=== PATIENT | male | born 1960 | race Caucasian/White ===

== ENCOUNTER 2016-07-14 20:00 | Inpatient (IN) | payer MEDICARE, OTHER ==
[~2016-07-14] VITALS: Ht 180.3 cm; Wt 99.8 kg
[~2016-07-14 20:00] MED LIST: ACET325T53 PO; AMLO5TAB4 PO; ATOR10TA PO; BISA-79 PO; CARV12.52 PO; CLON0.3T PO; DIVA500T4 PO; DOCU-25 PO; HYDR-4075 PO; HYDR100T27 PO; LABE100T25 PO; LISI40TA4 PO; LORA0.5T PO; MAGN400O4 PO; METF500T4 PO; NA P133E RC; NITR0.4T6 SL; OLAN5TAB3 PO; [UNRECOGNIZED DRUG - CODE] PO
[2016-07-14] MEDS ORDERED: LORAZEPAM 2 MG/1 ML VIAL IV ONE (20:30)
[2016-07-14] MEDS ORDERED: LORAZEPAM 2 MG/1 ML VIAL ONE (20:42)
[2016-07-14] MEDS ORDERED: VALS320T2 PO (20:49)
[2016-07-14] MEDS ORDERED: OXCA300T4 PO (20:49)
[2016-07-14] MEDS ORDERED: DOXA2TAB PO (20:49)
[2016-07-14] MEDS ORDERED: SPIR25TA PO (20:49)
[2016-07-14] MEDS ORDERED: POTA20TA83 PO (20:49)
[2016-07-14] MEDS ORDERED: OLANZAPINE 10 MG VIAL IM ONE ×2 (21:15→21:23)
[2016-07-14] MEDS ORDERED: LORAZEPAM 2 MG/1 ML VIAL IM ONE (21:15)
[2016-07-14 21:38] LABS: CALCIUM 9.1 mg/dL (8.5-10.1); CARBON DIOXIDE 22 mmol/L (21-32); CHLORIDE 102 mmol/L (98-107); CREATININE 1.2 mg/dL (0.6-1.3); GFR 63 mL/min (>60); GLUCOSE 120 mg/dL (74-106); POTASSIUM 3.9 mmol/L (3.5-5.1); SODIUM SERUM 138 mmol/L (136-145); UREA NITROGEN, BLOOD 16 mg/dL (7-18)
[2016-07-14 21:40] LABS: ETHANOL < 3 MG/DL (0-0)
[2016-07-14 21:53] LABS: ALANINE AMINOTRANSFERASE 15 U/L (16-63); ALBUMIN 3.5 g/dL (3.4-5.0); ALKALINE PHOSPHATASE 136 U/L (50-136); ASPARTATE AMINOTRANSFERASE 27 U/L (15-37); BILIRUBIN,DIRECT 0.1 mg/dL (0.0-0.2); BILIRUBIN,TOTAL 0.5 mg/dL (0.2-1.0); TOTAL PROTEIN, SERUM 7.2 g/dL (6.4-8.2)
[2016-07-14 21:54] LABS: THYROID STIMULATING HORMONE 2.034 mIU/mL (0.358-3.740)
[2016-07-14] MEDS ORDERED: LABETALOL HCL 100 MG/20 ML VIAL ONE (21:54)
[2016-07-14] MEDS ORDERED: LABETALOL HCL 100 MG/20 ML VIAL IV ONE ×2 (22:15→23:30)
[2016-07-14] MEDS ORDERED: CLONIDINE HCL 0.1 MG TABLET PO ONE (23:30)
[2016-07-14] MEDS ORDERED: CLONIDINE HCL 0.1 MG TABLET ONE (23:35)
[2016-07-14 23:40] LABS: BASOPHILS # (AUTO) 0.2 K/uL (0.0-0.2); BASOPHILS % (AUTO) 3.4 % (0.0-2.0); EOSINOPHILS # (AUTO) 0.2 K/uL (0.0-0.7); EOSINOPHILS % (AUTO) 4.1 % (0.0-7.0); HEMATOCRIT 45.6 % (40.0-50.0); HEMOGLOBIN 15.2 g/dL (14.0-18.0); LYMPHOCYTES # (AUTO) 1.3 K/uL (0.8-4.8); LYMPHOCYTES % (AUTO) 23.5 % (20.5-51.5); MEAN CORPUSCULAR HEMOGLOBIN 28.4 uug (27.0-31.0); MEAN CORPUSCULAR HGB CONC 33 g/dL (32.0-37.0); MEAN CORPUSCULAR VOLUME 85.1 fL (82.0-92.0); MONOCYTES # (AUTO) 0.6 K/uL (0.1-1.30); MONOCYTES % (AUTO) 10.8 % (0.0-11.0); NEUTROPHILS # (AUTO) 3.1 K/uL (1.8-8.9); NEUTROPHILS % (AUTO) 58.2 % (38.5-71.5); PLATELET COUNT (AUTO) 177 K/uL (150-450); RED BLOOD CELL COUNT(AUTO) 5.35 MIL/uL (4.70-6.10); RED CELL DISTRIBUTION WIDTH 13.5 % (11.5-14.5); WHITE BLOOD COUNT (AUTO) 5.4 K/uL (4.0-11.2)
[2016-07-14] MEDS ORDERED: ASPIRIN 325 MG TABLET ONE (23:55)
[2016-07-15] VITALS (7 sets, daily range): BP systolic 130–184; BP diastolic 78–120
[2016-07-15] MEDS ORDERED: ASPIRIN 325 MG TABLET PO ONE
[2016-07-15] MEDS ORDERED: NITROGLYCERIN OINT 1 GM PACKET TP ONE ×2 (00:04)
--- NOTE | 2016-07-15 00:49 | NUR ---
Patient transfered from [facility] on 5150 hold for grave disability. Patient noted with elevated BP. Pt. admitted to [facility] , under care of Dr. Parsons, Dx: NSTEMI, Grave disability. Belongs List completed
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
--- NOTE | 2016-07-15 03:30 | NUR ---
PATIENT HAS BEEN SLEEPING,BP 131/90, NSR RATE 64 BPM, NO ACUTE DISTRESS.
[2016-07-15] MEDS ORDERED: NITROGLYCERIN 0.4 MG/TAB BOTTLE SL PRN (04:15)
[2016-07-15] MEDS ORDERED: OLANZAPINE 5 MG TABLET PO SCH (04:15)
[2016-07-15] MEDS ORDERED: OXCARBAZEPINE 300 MG TABLET PO SCH (04:15)
[2016-07-15] MEDS ORDERED: LORAZEPAM 0.5 MG TABLET PO PRN (04:15)
[2016-07-15] MEDS ORDERED: ZOLPIDEM 5 MG TABLET PO PRN (04:30)
[2016-07-15] MEDS ORDERED: MAGNESIUM HYDROXIDE 30 ML LIQUID UDC PO PRN (04:30)
[2016-07-15] MEDS ORDERED: ACETAMINOPHEN 325 MG TABLET PO PRN (04:30)
[2016-07-15] MEDS ORDERED: Z GUARD REMEDY PASTE 57 GM TUBE TOP PRN (04:30)
[2016-07-15] MEDS ORDERED: ONDANSETRON 4 MG/2 ML VIAL IV PRN (04:30)
[2016-07-15] MEDS ORDERED: HYDROCODONE/APAP 5-325MG TABLET PO PRN (04:30)
--- NOTE | 2016-07-15 07:50 | NUR ---
PATIENT RECEIVED FROM FARM TRACTOR MECHANIC, NO ACUTE DISTRESS NOTED. PATIENT IN DEEP SLEEP DUE TO MEDICATION. SINUS RHYTHM ON TELE MONITOR. 1:1 SITTER AT BEDSIDE. SAFETY MEASURES MAINTAINED. WILL CONTINUE TO MONITOR.
[2016-07-15] MEDS: hydrALAZINE HCL 50 MG TABLET PO SCH ×5 (08:52→22:00)
[2016-07-15] MEDS: PANTOPRAZOLE SODIUM 40 MG TABLET.DR PO SCH (08:52)
[2016-07-15] MEDS: CARVEDILOL 25 MG TABLET PO SCH ×2 (08:53→17:57)
[2016-07-15] MEDS: DOCUSATE SODIUM 100 MG CAPSULE PO SCH (09:00)
[2016-07-15] MEDS ORDERED: Medication Not On Formulary EA (Valsartan (Diovan) 320 MG) PO SCH (09:00)
[2016-07-15] MEDS ORDERED: CARVEDILOL 12.5 MG TABLET PO SCH (09:00)
--- NOTE | 2016-07-15 09:30 | NUR ---
PATIENT AWAKE AND ORIENTED TO PERSON AND PLACE. EATING BREAKFAST WITH GOOD APPETITE.
[2016-07-15] MEDS: VALSARTAN 160 MG TABLET PO SCH (10:33)
[2016-07-15] MEDS: SPIRONOLACTONE 25 MG TABLET PO SCH (10:33)
[2016-07-15] MEDS: OXCARBAZEPINE 300 MG TABLET PO SCH ×2 (10:33→21:59)
[2016-07-15] MEDS: DOXAZOSIN 2 MG TABLET PO SCH ×2 (10:33→20:30)
[2016-07-15 12:00] LABS: CALCIUM 8.9 mg/dL (8.5-10.1); CREATININE 1.2 mg/dL (0.6-1.3); POTASSIUM 3.2 mmol/L (3.5-5.1)
[2016-07-15 12:03] LABS: MAGNESIUM 1.8 mg/dL (1.8-2.4)
--- NOTE | 2016-07-15 13:14 | NUR ---
EKG DONE PER JOANNE GRAHAM NP. DR. LANDEROS CORE CUTTER MADE AWARE OF FINDINGS, HE WILL ASSESS PATIENT.
[2016-07-15] MEDS ORDERED: POTASSIUM CHLORIDE 20 MEQ TAB.PRT.SR PO ONE (13:30)
[2016-07-15] MEDS: ASPIRIN 81 MG TAB.CHEW PO SCH ×2 (13:30→16:00)
--- NOTE | 2016-07-15 14:27 | NUR ---
PATIENT REFUSING BP, ASPIRIN, AND POTASSIUM MEDICATION AT THIS TIME. JOANNE GRAHAM NP MADE AWARE.
--- NOTE | 2016-07-15 16:11 | NUR ---
PATIENT AGREED TO TAKE MEDICATIONS.
--- NOTE | 2016-07-15 17:58 | NUR ---
PATIENT'S BP 176/116, PATIENT REFUSED TO TAKE COREG PRESCRIBED. STATED "NO, I DO NOT CARE IF I AM GOING TO , I AM GOING TO !!" SHOUTING AND AGITATED. UNABLE TO COMPREHEND AND REDIRECT AT THIS TIME. DENIED SI OR HI. JOANNE GRAHAM CREPE MACHINE OPERATOR NOTIFIED. CONTINUES WITH 1:1 SITTER AT BEDSIDE FOR SAFETY.
--- NOTE | 2016-07-15 18:10 | NUR ---
DR. SAVI BOGGS HERE TO SEE THE PATIENT. FULL REPORT GIVEN.
[2016-07-15] MEDS: ATORVASTATIN 10 MG TABLET PO SCH (20:30)
[2016-07-15] MEDS: OLANZAPINE ZYDIS 5 MG TAB.RAPDIS PO SCH ×2 (21:00→21:59)
--- NOTE | 2016-07-15 22:46 | NUR ---
Pt refusing his medication. took 2100 medication. spitted out 2200 medication. Pt was explained and educated is to why he is getting medication. He said that he is ok and getting too much medication and nothing is happening. pin drafting machine operator notified.
[2016-07-16] VITALS (8 sets, daily range): BP systolic 106–192; BP diastolic 60–126
--- NOTE | 2016-07-16 00:30 | NUR ---
BLOOD AL. STILL ELEVATED. PT CONTINUES TO REFUSE MEDICATION, GOT VERY ANGRY DOES NOT WANT TO BE BOTHERED. pT VERBALIZED UNDERSTANDING OF RISK OF NOT TAKING HIS BP MEDICATIONS. CHARGE NURSE MADE AWARE. MD AWARE THAT PT HAS BEEN REFUSING MEDS AND TREATMENT.
--- NOTE | 2016-07-16 02:32 | NUR ---
REMAINS ON 1:1 STATUS FOR PT SAFETY.
[2016-07-16] MEDS: hydrALAZINE HCL 50 MG TABLET PO SCH ×3 (05:12→20:32)
[2016-07-16] MEDS: PANTOPRAZOLE SODIUM 40 MG TABLET.DR PO SCH (05:12)
--- NOTE | 2016-07-16 06:44 | NUR ---
pt refused lab draw. medicated for HTN. see eMAR Had uneventful night.
[2016-07-16] MEDS: OXCARBAZEPINE 300 MG TABLET PO SCH ×2 (08:24→20:32)
[2016-07-16] MEDS: DOXAZOSIN 2 MG TABLET PO SCH ×2 (08:26→20:31)
[2016-07-16] MEDS: DOCUSATE SODIUM 100 MG CAPSULE PO SCH ×2 (08:27→08:37)
[2016-07-16] MEDS: VALSARTAN 160 MG TABLET PO SCH (08:27)
[2016-07-16] MEDS: OLANZAPINE ZYDIS 5 MG TAB.RAPDIS PO SCH ×2 (08:27→20:32)
[2016-07-16] MEDS: SPIRONOLACTONE 25 MG TABLET PO SCH (08:27)
[2016-07-16] MEDS: ASPIRIN 81 MG TAB.CHEW PO SCH (08:27)
[2016-07-16] MEDS: CARVEDILOL 25 MG TABLET PO SCH ×3 (08:28→17:19)
--- NOTE | 2016-07-16 08:37 | NUR ---
SBP in the high 180's ELEPHANT TAMER covering for MD notified and int he room when patient refuse to take a couple of medications see Emar sbp retaken and int he 191/121 HR 101. patient awake alert and stating "I have my rights to refuse medications" patient educated on HTN. and sbp been george.
[2016-07-16] MEDS ORDERED: CLONIDINE-TTS 1 PATCH TD SCH (10:00)
--- NOTE | 2016-07-16 14:27 | NUR ---
Patient seen by cardiology services and refused assessment.
[2016-07-16] MEDS: CLONIDINE HCL 0.3 MG TABLET PO PRN (16:15)
[2016-07-16] MEDS: ENALAPRILAT DIHYDRATE INJ 2.5 MG in IV NORMAL SALINE 50 ML IV PRN ×2 (17:07→17:20)
--- NOTE | 2016-07-16 17:21 | NUR ---
At this time attempts to administer both carbedilol po and vasotec IV for SBP of 187/126. Patient adamantly refuse. stating "I have the right to refuse and I don't care if I live or ". Patient persuaded and educated on side effects of been non-compliant with medications regimen. Dr. Mosqueda notified of refusal.
[2016-07-16] MEDS: ATORVASTATIN 10 MG TABLET PO SCH (20:31)
[2016-07-17 00:08] VITALS: BP 129/83
--- NOTE | 2016-07-17 05:18 | NUR ---
BP elevated 152/97. Patient refused to take his morning BP meds.
[2016-07-17] MEDS: hydrALAZINE HCL 50 MG TABLET PO SCH ×3 (05:19→21:43)
[2016-07-17] MEDS: PANTOPRAZOLE SODIUM 40 MG TABLET.DR PO SCH (05:20)
[2016-07-17 05:25] VITALS: BP 152/97
[2016-07-17 07:45] VITALS: BP 165/106
--- NOTE | 2016-07-17 08:00 | NUR ---
Pt received on 1:1 status with sitter at bedside.Pt appears comfortable.No s/s of pain,distress.All po medication was given to patient.will continue to monitor.
[2016-07-17] MEDS: ASPIRIN 81 MG TAB.CHEW PO SCH (09:04)
[2016-07-17] MEDS: VALSARTAN 160 MG TABLET PO SCH (09:05)
[2016-07-17] MEDS: DOXAZOSIN 2 MG TABLET PO SCH ×2 (09:05→20:28)
[2016-07-17] MEDS: DOCUSATE SODIUM 100 MG CAPSULE PO SCH (09:05)
[2016-07-17] MEDS: OLANZAPINE ZYDIS 5 MG TAB.RAPDIS PO SCH ×2 (09:05→20:29)
[2016-07-17] MEDS: SPIRONOLACTONE 25 MG TABLET PO SCH (09:05)
[2016-07-17] MEDS: OXCARBAZEPINE 300 MG TABLET PO SCH ×2 (09:05→20:29)
[2016-07-17] MEDS: CARVEDILOL 25 MG TABLET PO SCH ×2 (09:11→17:18)
[2016-07-17] MEDS: CLONIDINE HCL 0.3 MG TABLET PO PRN (14:43)
--- NOTE | 2016-07-17 15:00 | NUR ---
Patient BP 178/118, patient was given clonidine 0.3mg PO at 1443 with lots of prompting, will reassessed in 30 mins.
--- NOTE | 2016-07-17 15:30 | NUR ---
BP was rechecked after 30 mins. BP-140/98, P-60. Will continue to monitor .
[2016-07-17 17:00] VITALS: BP 140/95
[2016-07-17] MEDS ORDERED: CLONIDINE TTS 2 PATCH TD SCH (17:30)
[2016-07-17 20:00] VITALS: BP 163/105
--- NOTE | 2016-07-17 20:00 | NUR ---
PATIENT AWAKE IN BED. A/O X2. BLOOD PRESSURE IS 163/105. ALL OTHER VSS. DENIES PAIN OR DISCOMFORT. NO RESP. DISTRESS NOTED. 1:1 SITTER AT BEDSIDE. CALL LIGHT IN REACH. ALL NEEDS ATTENDED. WILL CONTINUE TO MONITOR.
[2016-07-17] MEDS: ATORVASTATIN 10 MG TABLET PO SCH (20:29)
--- NOTE | 2016-07-17 20:30 | NUR ---
PATIENT REFUSED HS MEDICATIONS. NOTIFIED DR. DYKES THAT PATIENT IS REFUSING TO TAKE BP MEDS AND THAT BP IS ELEVATED. NO NEW ORDERS AT THIS TIME. WILL CONTINUE TO MONITOR.
--- NOTE | 2016-07-17 21:44 | NUR ---
PATIENT ASLEEP IN BED. EASILY AROUSABLE. PATIENT INFORMED THAT BP MEDICATION IS DUE AND THAT BLOOD PRESSURE IS ELEVATED. PATIENT REFUSED TO TAKE ANY MEDS, STATED, "I AM OK." DR. DYKES AWARE THAT PATIENT IS REFUSING TO TAKE MEDS. WILL CONTINUE TO MONITOR. SITTER AT BEDSIDE.
[2016-07-18 05:22] VITALS: BP 172/113
[2016-07-18] MEDS: hydrALAZINE HCL 50 MG TABLET PO SCH ×3 (05:34→21:53)
--- NOTE | 2016-07-18 05:35 | NUR ---
PATIENT AWAKE IN BED. SITTER AT BEDSIDE. SLEPT WELL THROUGHOUT THE NIGHT. BP 172/113. PATIENT COMPLIANT WITH TAKING 0600 HYDRALAZINE 100MG PO. ALL OTHER VSS. DENIES PAIN OR DISCOMFORT. NO RESP. DISTRESS NOTED. CALL LIGHT IN REACH. ALL NEEDS ATTENDED. PATIENT SLEPT A TOTAL OF 6 HOURS.
[2016-07-18] MEDS: PANTOPRAZOLE SODIUM 40 MG TABLET.DR PO SCH (06:18)
[2016-07-18] MEDS: CARVEDILOL 25 MG TABLET PO SCH ×2 (08:20→17:29)
[2016-07-18] MEDS: SPIRONOLACTONE 25 MG TABLET PO SCH (08:20)
[2016-07-18] MEDS: DOXAZOSIN 2 MG TABLET PO SCH ×2 (08:20→20:10)
[2016-07-18] MEDS: VALSARTAN 160 MG TABLET PO SCH (08:21)
[2016-07-18] MEDS: DOCUSATE SODIUM 100 MG CAPSULE PO SCH (08:27)
[2016-07-18] MEDS: OLANZAPINE ZYDIS 5 MG TAB.RAPDIS PO SCH ×2 (08:27→20:16)
[2016-07-18] MEDS: ASPIRIN 81 MG TAB.CHEW PO SCH (08:27)
[2016-07-18] MEDS: OXCARBAZEPINE 300 MG TABLET PO SCH ×2 (08:27→20:16)
[2016-07-18 11:26] VITALS: BP 163/116
[2016-07-18] MEDS: CLONIDINE HCL 0.3 MG TABLET PO PRN ×2 (12:01→20:10)
[2016-07-18 14:47] VITALS: BP 171/121
--- NOTE | 2016-07-18 16:42 | NUR ---
The patient is medically cleared and [facility] under the care of Dr. Cosme. Spoke to Dr. Delcid who is covering for Dr. Cosme and he was in agreement. The patient was placed on a [address] Cosme on 07/17/16 for GD. The patient is aware that he in on a hold and knows that he will be transferred to MHU. GADIEL Stevens Development And Planning Engineer, is aware of the transfer and confirmed the efren Hummel RN, that they will admit the patient and he will be going to Room#145B. His RN, Sridevi, is aware of his discharge and will call the unit for the report.
[2016-07-18 20:00] VITALS: BP 181/141
[2016-07-18] MEDS: ATORVASTATIN 10 MG TABLET PO SCH (20:16)
[2016-07-19 04:00] VITALS: BP 159/102
[2016-07-19] MEDS: hydrALAZINE HCL 50 MG TABLET PO SCH ×3 (06:15→22:23)
[2016-07-19] MEDS: PANTOPRAZOLE SODIUM 40 MG TABLET.DR PO SCH (06:15)
--- NOTE | 2016-07-19 06:54 | NUR ---
PATIENT AWAKE, RESTING IN BED. SLEPT WELL THROUGHOUT THE NIGHT. DENIES PAIN. CALL LIGHT IN REACH. ALL NEEDS ATTENDED. WILL CONTINUE TO MONITOR.
[2016-07-19] MEDS: DOXAZOSIN 2 MG TABLET PO SCH ×2 (07:58→20:18)
[2016-07-19] MEDS: OXCARBAZEPINE 300 MG TABLET PO SCH ×2 (07:58→20:18)
[2016-07-19] MEDS: CARVEDILOL 25 MG TABLET PO SCH ×2 (08:00→17:39)
[2016-07-19] MEDS: VALSARTAN 160 MG TABLET PO SCH (08:01)
[2016-07-19 08:21] VITALS: BP 166/112
[2016-07-19] MEDS: DOCUSATE SODIUM 100 MG CAPSULE PO SCH (09:00)
[2016-07-19] MEDS: ASPIRIN 81 MG TAB.CHEW PO SCH (09:00)
[2016-07-19] MEDS: SPIRONOLACTONE 25 MG TABLET PO SCH (09:00)
[2016-07-19 12:02] VITALS: BP 157/107
[2016-07-19] MEDS: OLANZAPINE ZYDIS 5 MG TAB.RAPDIS PO SCH ×2 (13:17→20:18)
[2016-07-19 13:57] VITALS: BP 157/107
--- NOTE | 2016-07-19 14:15 | NUR ---
ATTEMPTED TO GIVE HYDRALAZINE PO FOR HIGH BP 157/107 P 77. PATIENT REFUSED, EDUCATION OF REFUSING AND S/S VERBALIZED TO PATIENT, PATIENT VERBALIZES UNDERSTANDING. CONTINUE TO EDUCATE AND ENCOURAGE PATIENT REGARDING IMPORTANCE OF MEDICATION REGIMEN. JOANNE GRAHAM GAS OPERATION MANAGER MADE AWARE, NO FURTHER ACTION NEEDED AT THIS TIME.
--- NOTE | 2016-07-19 15:56 | NUR ---
RECEIVED PATIENT AAOx2, TO PERSON AND PLACE. NO COMPLAINTS OF PAIN AT THIS TIME. IV TO RIGHT FA 20G, CLEAN, DRY, NO REDNESS OR SWELLING. PATENT WITH IV FLUSH. SKIN INTACT, NO OTHER DISTRESS NOTED AT THIS TIME. SAFETY MEASURES MAINTAINED. CALL LIGHT WITHIN REACH.
[2016-07-19 16:21] VITALS: BP 160/109
[2016-07-19 20:00] VITALS: BP 165/112
--- NOTE | 2016-07-19 20:15 | NUR ---
PATIENT AWAKE IN BED. A/O X2. PATIENT COOPERATIVE WITH TAKING HS MEDS. ALL ORDERED MEDICATIONS WERE TAKEN. BP ELEVATED 165/112. ALL OTHER VSS. PATIENT DENIES PAIN OR DISCOMFORT. NO RESP. DISTRESS NOTED. HEPLOCK INTACT AND PATENT. SITTER AT BEDSIDE ORDERED. CALL LIGHT IN REACH. ALL NEEDS ATTENDED. WILL CONTINUE TO MONITOR.
[2016-07-19] MEDS: ATORVASTATIN 10 MG TABLET PO SCH (20:18)
[2016-07-20 05:53] VITALS: BP 167/113
[2016-07-20] MEDS: hydrALAZINE HCL 50 MG TABLET PO SCH ×4 (06:01→22:00)
[2016-07-20] MEDS: PANTOPRAZOLE SODIUM 40 MG TABLET.DR PO SCH (06:01)
--- NOTE | 2016-07-20 07:04 | NUR ---
PATIENT AWAKE IN BED. COOPERATIVE WITH MEDS. SLEPT WELL. SITTER AT BEDSIDE. DENIES PAIN. CALL LIGHT IN REACH. ALL NEEDS ATTENDED. WILL CONTINUE TO MONITOR.
--- NOTE | 2016-07-20 07:30 | NUR ---
Report received from shift supervisor film processing. Patient lying in bed supine AAOx3, no complaints of pain at this time. No other acute needs noted. O2 sat WNL on RA, skin intact. Safety precautions maintained, fall precautions maintained. Will continue to monitor.
[2016-07-20] MEDS: OXCARBAZEPINE 300 MG TABLET PO SCH ×3 (08:48→21:16)
[2016-07-20] MEDS: CARVEDILOL 25 MG TABLET PO SCH ×2 (08:48→17:09)
[2016-07-20] MEDS: VALSARTAN 160 MG TABLET PO SCH (08:49)
[2016-07-20] MEDS: ASPIRIN 81 MG TAB.CHEW PO SCH (09:00)
[2016-07-20] MEDS: DOCUSATE SODIUM 100 MG CAPSULE PO SCH (09:00)
[2016-07-20] MEDS: OLANZAPINE ZYDIS 5 MG TAB.RAPDIS PO SCH ×3 (09:00→21:16)
--- NOTE | 2016-07-20 09:30 | NUR ---
VS BP 157/107, P 76. Attempted to administer po BP medications. Patient took Coreg, Valsartan, and Trileptal, refused to take other routine BP medications. Explained the risk of refusal to take BP medications, patient continued to verbalize refusal. Will continue to monitor BP and encourage patient to take medication.
--- NOTE | 2016-07-20 11:05 | NUR ---
Attempted to administer BP medications for high BP again. Patient continued to verbalize refusal to take BP medications despite being advised of risks of not taking medication.
[2016-07-20 12:05] VITALS: BP 173/111
[2016-07-20] MEDS: DOXAZOSIN 2 MG TABLET PO SCH ×2 (13:25→21:00)
[2016-07-20] MEDS: SPIRONOLACTONE 25 MG TABLET PO SCH (13:25)
--- NOTE | 2016-07-20 14:10 | NUR ---
Attempted to administer clonodine patch to patient for high BP 175/118. Patient refused to have patch put on. Explained to patient the importance of reducing the high BP and risk of not taking medication. Patient continued to refuse. He accepted to take aspirin po, however still refused to take zyprexa po and colace po. Explained to patient the action of medications and risks of not taking medication. Patient continued to refuse aspirin po and colace po.
[2016-07-20 15:56] VITALS: BP_SYST 118; BP_SYST 175; BP_DIAS 118; BP_DIAS 84
[2016-07-20] MEDS: CLONIDINE HCL 0.3 MG TABLET PO PRN (18:38)
--- NOTE | 2016-07-20 18:39 | NUR ---
BP 189/101, attempted to administer hydralazine or clonidine patch. Patient refused both in an angry tone of voice. Educated to patient importance of taking BP medications for the high BP. Patient continued to refuse. Brought him clonidine po instead, patient agreed to take that only. Will continue to monitor BP.
--- NOTE | 2016-07-20 18:45 | NUR ---
Notified Dr garner of the elevated b/p and states that we need to wait for b/p to come down prior to d/c to psych for pt safety. Will endorse to material handler 2nd shift.
[2016-07-20 20:00] VITALS: BP 195/121
[2016-07-20] MEDS: ATORVASTATIN 10 MG TABLET PO SCH ×2 (21:00→21:16)
--- NOTE | 2016-07-20 21:00 | NUR ---
Patient resting in bed, quiet but verbally responsive. No SOB denies chest pain. BP 195/121. Patient refused to take all his routine night meds & BP meds. Patient stated if he dies he . Dr. Velasco notified & made aware about patient's current condition. Discharge order to Psych unit was cancelled per MD order due to blood pressure issue. 1:1 sitter in room.
--- NOTE | 2016-07-20 22:30 | NUR ---
Patient finally took his BP medication Hydralazine, but refused to take the rest of his medications. Refused to have his BP checked
[2016-07-21 06:00] VITALS: BP 181/117
[2016-07-21] MEDS: hydrALAZINE HCL 50 MG TABLET PO SCH ×2 (06:00→15:23)
[2016-07-21] MEDS: PANTOPRAZOLE SODIUM 40 MG TABLET.DR PO SCH (06:29)
--- NOTE | 2016-07-21 06:42 | NUR ---
Current BP is high 181/117. Patient refused his BP meds even Clonidine patch. Patient remains quiet & doesnt want to be bothered. 1:1 sitter in room.
[2016-07-21 08:00] VITALS: BP 172/113
[2016-07-21 08:30] VITALS: BP 162/111
[2016-07-21] MEDS: DOCUSATE SODIUM 100 MG CAPSULE PO SCH (09:00)
[2016-07-21] MEDS: SPIRONOLACTONE 25 MG TABLET PO SCH (09:00)
[2016-07-21] MEDS: OXCARBAZEPINE 300 MG TABLET PO SCH (09:00)
[2016-07-21] MEDS: DOXAZOSIN 2 MG TABLET PO SCH (09:00)
[2016-07-21] MEDS: OLANZAPINE ZYDIS 5 MG TAB.RAPDIS PO SCH ×2 (09:00→10:07)
[2016-07-21] MEDS: CARVEDILOL 25 MG TABLET PO SCH (09:08)
[2016-07-21] MEDS: ASPIRIN 81 MG TAB.CHEW PO SCH (09:08)
[2016-07-21] MEDS: VALSARTAN 160 MG TABLET PO SCH (09:08)
--- NOTE | 2016-07-21 09:13 | NUR ---
PATIENT TOOK BP MEDICATIONS BUT REFUSED OTHER MEDS. HEALTH TEACHING DONE TWICE. OFFERED TO PATIENT TWICE. PATIENT STILL REFUSED.
[2016-07-21] MEDS ORDERED: ASPI81TA31 PO (15:11)
[2016-07-21 16:07] VITALS: BP 170/103
[2016-07-21] MEDS: CLONIDINE HCL 0.3 MG TABLET PO PRN (16:07)
--- NOTE | 2016-07-21 16:50 | NUR ---
PT STABLE GIVEN PRN CLONIDINE BP WENT DOWN TO 168/101. MD AWARE AND ORDER TO TRANSFER TO MHU. ALL NEEDS GIVEN. NO DISTRESS AND NO PAIN NOTED. BREATHING UNLABORED. NO COMPLAINT AND AT THIS TIME. ALL BELONGINGS GIVEN TO THE PATIENT. REPORT GIVEN TO ROCIO SU. PT DISCHARGE TO MHU
[2016-07-21] MEDS ORDERED: CARV25TA PO (17:04)
[2016-07-21] MEDS ORDERED: HYDR-3326 PO (17:08)
[2016-07-21] MEDS ORDERED: PANT40TA2 PO (17:11)
[2016-07-21] MEDS ORDERED: ZOLP5TAB2 PO (17:14)
[2016-07-21] MEDS ORDERED: ZINC113P2 TP (17:14)
[2016-07-21] MEDS ORDERED: CLON1PAT2 TD (17:16)
== END 2016-07-21 16:15 | DRG 280 ==
LOC: ER 20:00 → DOU 07-15 00:26 → TELE-TD 07-15 00:57 → TELE 07-17 09:14 → MED 07-17 12:43
PROVIDERS: ADMIT Nurse Practitioner Acute Care; ATTEND Nurse Practitioner Acute Care
DX: I21.4 Non-ST elevation (NSTEMI) myocardial infarction (principal); I50.33 Acute on chronic diastolic (congestive) heart failure; I16.1 Hypertensive emergency; F20.0 Paranoid schizophrenia; G81.91 Hemiplegia, unspecified affecting right dominant side; E87.6 Hypokalemia; E78.5 Hyperlipidemia, unspecified; K21.9 Gastro-esophageal reflux disease without esophagitis; I25.10 Atherosclerotic heart disease of native coronary artery without angina pectoris; Z91.81 History of falling; F79 Unspecified intellectual disabilities; F48.2 Pseudobulbar affect; F29 Unspecified psychosis not due to a substance or known physiological condition; Z79.899 Other long term (current) drug therapy; I67.1 Cerebral aneurysm, nonruptured; E11.41 Type 2 diabetes mellitus with diabetic mononeuropathy; Z79.84 Long term (current) use of oral hypoglycemic drugs; Z91.19 Patient's noncompliance with other medical treatment and regimen; Z91.14 Patient's other noncompliance with medication regimen; R56.9 Unspecified convulsions
CPT/HCPCS: 36415; 70030-TC; 70450; 71010; 83605; 83735; 84100; 84443; 85025; 85730; 93005; 93307; A4663; G6040-TC; J2060; J2358; J3490

== ENCOUNTER 2016-07-21 16:47 | Inpatient (IN) | payer MEDICARE, OTHER ==
[~2016-07-21] VITALS: Ht 188 cm; Wt 102.1 kg
[2016-07-21 16:30] VITALS: BP 183/120
[~2016-07-21 16:47] MED LIST changes: -AMLO5TAB4 PO; +ASPI81TA31 PO; -DIVA500T4 PO; +DOXA2TAB PO; -LABE100T25 PO; -LISI40TA4 PO; -METF500T4 PO; -NA P133E RC; +OXCA300T4 PO; +POTA20TA83 PO; +SPIR25TA PO; +VALS320T2 PO; -[UNRECOGNIZED DRUG - CODE] PO
[2016-07-21] MEDS ORDERED: ACETAMINOPHEN 325 MG TABLET PO PRN (17:00)
[2016-07-21] MEDS ORDERED: MAG HYDROX/AL HYDROX/SIMETH 30 ML LIQUID UDC PO PRN (17:00)
[2016-07-21] MEDS ORDERED: MAGNESIUM HYDROXIDE 30 ML LIQUID UDC PO PRN (17:00)
[2016-07-21] MEDS ORDERED: CARV25TA PO (17:04)
[2016-07-21] MEDS ORDERED: HYDR-3326 PO (17:08)
[2016-07-21] MEDS ORDERED: PANT40TA2 PO (17:11)
[2016-07-21] MEDS ORDERED: ZINC113P2 TP (17:14)
[2016-07-21] MEDS ORDERED: ZOLP5TAB2 PO (17:14)
[2016-07-21] MEDS ORDERED: CLON1PAT2 TD (17:16)
[2016-07-21 18:31] VITALS: BP 132/83
[2016-07-21 19:54] VITALS: BP 116/80
[2016-07-21] MEDS: OLANZAPINE ZYDIS 5 MG TAB.RAPDIS PO SCH (21:12)
[2016-07-21] MEDS ORDERED: NITROGLYCERIN 0.4 MG/TAB BOTTLE SL PRN (23:00)
[2016-07-22] MEDS ORDERED: OXCARBAZEPINE 150 MG TABLET ONE (01:34)
[2016-07-22] MEDS ORDERED: CLONIDINE HCL 0.1 MG TABLET ONE (01:38)
[2016-07-22] MEDS ORDERED: TEMAZEPAM 7.5 MG CAPSULE PO PRN (02:00)
[2016-07-22] MEDS ORDERED: LORAZEPAM 1 MG TABLET PO PRN (02:00)
[2016-07-22] MEDS: PANTOPRAZOLE SODIUM 40 MG TABLET.DR PO SCH (07:00)
[2016-07-22 07:30] VITALS: BP 146/99
[2016-07-22] MEDS: hydrALAZINE HCL 50 MG TABLET PO SCH ×3 (07:30→22:01)
[2016-07-22] MEDS: CARVEDILOL 25 MG TABLET PO SCH ×2 (08:00→17:48)
[2016-07-22] MEDS: ASPIRIN 81 MG TAB.CHEW PO SCH (08:32)
[2016-07-22] MEDS: DOXAZOSIN 2 MG TABLET PO SCH ×2 (08:33→20:27)
[2016-07-22] MEDS: VALSARTAN 160 MG TABLET PO SCH (08:33)
[2016-07-22] MEDS: OXCARBAZEPINE 300 MG TABLET PO SCH ×2 (08:33→20:27)
[2016-07-22] MEDS: SPIRONOLACTONE 25 MG TABLET PO SCH (08:33)
[2016-07-22] MEDS: DOCUSATE SODIUM 100 MG CAPSULE PO SCH (08:35)
[2016-07-22] MEDS: OLANZAPINE ZYDIS 5 MG TAB.RAPDIS PO SCH ×3 (08:38→20:36)
[2016-07-22] MEDS ORDERED: Medication Not On Formulary EA (Valsartan (Diovan) 320 MG) PO SCH (09:00)
[2016-07-22] MEDS ORDERED: CLONIDINE TTS 2 PATCH TD SCH (10:00)
[2016-07-22] MEDS: CLONIDINE HCL 0.3 MG TABLET PO PRN (14:54)
[2016-07-22 16:00] VITALS: BP 160/109
[2016-07-22] MEDS ORDERED: POTASSIUM CHLORIDE 20 MEQ TAB.PRT.SR PO ONE (16:45)
[2016-07-22 20:01] VITALS: BP 121/83
[2016-07-22] MEDS: ATORVASTATIN 10 MG TABLET PO SCH (20:26)
[2016-07-23] MEDS: PANTOPRAZOLE SODIUM 40 MG TABLET.DR PO SCH (05:59)
[2016-07-23] MEDS: hydrALAZINE HCL 50 MG TABLET PO SCH ×5 (05:59→23:27)
[2016-07-23 07:30] VITALS: BP 148/102
[2016-07-23] MEDS: OLANZAPINE ZYDIS 5 MG TAB.RAPDIS PO SCH ×3 (09:00→20:02)
[2016-07-23] MEDS: DOCUSATE SODIUM 100 MG CAPSULE PO SCH (09:00)
[2016-07-23] MEDS: CARVEDILOL 25 MG TABLET PO SCH ×2 (09:17→17:47)
[2016-07-23] MEDS: DOXAZOSIN 2 MG TABLET PO SCH ×2 (09:24→20:02)
[2016-07-23] MEDS: SPIRONOLACTONE 25 MG TABLET PO SCH (09:24)
[2016-07-23] MEDS: ASPIRIN 81 MG TAB.CHEW PO SCH (09:24)
[2016-07-23] MEDS: VALSARTAN 160 MG TABLET PO SCH (09:25)
[2016-07-23] MEDS: OXCARBAZEPINE 300 MG TABLET PO SCH ×2 (09:25→20:02)
[2016-07-23 15:50] VITALS: BP 151/97
[2016-07-23] MEDS: ATORVASTATIN 10 MG TABLET PO SCH (20:02)
[2016-07-23] MEDS: CLONIDINE HCL 0.3 MG TABLET PO PRN (20:02)
[2016-07-23 20:34] VITALS: BP 181/105
[2016-07-24] MEDS: hydrALAZINE HCL 50 MG TABLET PO SCH ×3 (06:16→22:00)
[2016-07-24] MEDS: PANTOPRAZOLE SODIUM 40 MG TABLET.DR PO SCH (06:17)
[2016-07-24 08:00] VITALS: BP 160/105
[2016-07-24] MEDS: CARVEDILOL 25 MG TABLET PO SCH ×2 (08:00→17:00)
[2016-07-24] MEDS: DOCUSATE SODIUM 100 MG CAPSULE PO SCH (09:00)
[2016-07-24] MEDS: OLANZAPINE ZYDIS 5 MG TAB.RAPDIS PO SCH ×3 (09:00→20:25)
[2016-07-24] MEDS: SPIRONOLACTONE 25 MG TABLET PO SCH (09:08)
[2016-07-24] MEDS: VALSARTAN 160 MG TABLET PO SCH (09:08)
[2016-07-24] MEDS: ASPIRIN 81 MG TAB.CHEW PO SCH (09:08)
[2016-07-24] MEDS: DOXAZOSIN 2 MG TABLET PO SCH ×2 (09:09→20:14)
[2016-07-24] MEDS: OXCARBAZEPINE 300 MG TABLET PO SCH ×2 (09:09→20:14)
[2016-07-24 15:21] VITALS: BP 172/108
[2016-07-24] MEDS: CLONIDINE HCL 0.3 MG TABLET PO PRN (15:31)
[2016-07-24 20:03] VITALS: BP 140/90
[2016-07-24] MEDS: ATORVASTATIN 10 MG TABLET PO SCH (20:25)
[2016-07-25] MEDS: hydrALAZINE HCL 50 MG TABLET PO SCH ×3 (05:35→20:59)
[2016-07-25] MEDS: PANTOPRAZOLE SODIUM 40 MG TABLET.DR PO SCH (06:24)
[2016-07-25 07:30] VITALS: BP 148/106
[2016-07-25] MEDS: OXCARBAZEPINE 300 MG TABLET PO SCH ×2 (09:00→20:59)
[2016-07-25] MEDS: OLANZAPINE ZYDIS 5 MG TAB.RAPDIS PO SCH ×3 (09:00→20:58)
[2016-07-25] MEDS: VALSARTAN 160 MG TABLET PO SCH (09:00)
[2016-07-25] MEDS: DOCUSATE SODIUM 100 MG CAPSULE PO SCH (09:00)
[2016-07-25] MEDS: DOXAZOSIN 2 MG TABLET PO SCH ×2 (09:05→20:59)
[2016-07-25] MEDS: SPIRONOLACTONE 25 MG TABLET PO SCH (09:05)
[2016-07-25] MEDS: ASPIRIN 81 MG TAB.CHEW PO SCH (09:05)
[2016-07-25] MEDS: CARVEDILOL 25 MG TABLET PO SCH ×2 (09:07→18:23)
[2016-07-25 15:04] VITALS: BP 157/100
[2016-07-25 18:22] VITALS: BP 175/112
[2016-07-25] MEDS: CLONIDINE HCL 0.3 MG TABLET PO PRN (19:17)
[2016-07-25 20:24] VITALS: BP 170/106
[2016-07-25] MEDS: ATORVASTATIN 10 MG TABLET PO SCH (20:58)
[2016-07-26] MEDS: PANTOPRAZOLE SODIUM 40 MG TABLET.DR PO SCH (05:34)
[2016-07-26] MEDS: hydrALAZINE HCL 50 MG TABLET PO SCH ×3 (05:35→21:45)
[2016-07-26 07:30] VITALS: BP 161/101
[2016-07-26] MEDS: CARVEDILOL 25 MG TABLET PO SCH ×2 (08:00→17:23)
[2016-07-26] MEDS: OXCARBAZEPINE 300 MG TABLET PO SCH ×2 (08:44→20:01)
[2016-07-26] MEDS: ASPIRIN 81 MG TAB.CHEW PO SCH (08:45)
[2016-07-26] MEDS: DOXAZOSIN 2 MG TABLET PO SCH ×2 (08:45→20:02)
[2016-07-26] MEDS: SPIRONOLACTONE 25 MG TABLET PO SCH (08:46)
[2016-07-26] MEDS: VALSARTAN 160 MG TABLET PO SCH (08:46)
[2016-07-26] MEDS: DOCUSATE SODIUM 100 MG CAPSULE PO SCH (08:46)
[2016-07-26] MEDS: OLANZAPINE ZYDIS 5 MG TAB.RAPDIS PO SCH ×3 (08:47→20:01)
[2016-07-26 15:11] VITALS: BP 172/101
[2016-07-26] MEDS: CLONIDINE HCL 0.3 MG TABLET PO PRN (19:45)
[2016-07-26 19:49] VITALS: BP 173/103
[2016-07-26] MEDS: ATORVASTATIN 10 MG TABLET PO SCH (20:01)
[2016-07-26 21:10] VITALS: BP 141/89
[2016-07-27] MEDS: hydrALAZINE HCL 50 MG TABLET PO SCH ×3 (05:14→22:12)
[2016-07-27] MEDS: CLONIDINE HCL 0.3 MG TABLET PO PRN ×2 (05:15→19:32)
[2016-07-27] MEDS: PANTOPRAZOLE SODIUM 40 MG TABLET.DR PO SCH (06:12)
[2016-07-27 07:48] VITALS: BP 171/104
[2016-07-27] MEDS: SPIRONOLACTONE 25 MG TABLET PO SCH (08:05)
[2016-07-27] MEDS: OLANZAPINE ZYDIS 5 MG TAB.RAPDIS PO SCH ×3 (08:05→20:40)
[2016-07-27] MEDS: VALSARTAN 160 MG TABLET PO SCH (08:09)
[2016-07-27] MEDS: DOXAZOSIN 2 MG TABLET PO SCH ×2 (08:09→20:40)
[2016-07-27] MEDS: ASPIRIN 81 MG TAB.CHEW PO SCH (08:09)
[2016-07-27] MEDS: OXCARBAZEPINE 300 MG TABLET PO SCH ×2 (08:09→20:40)
[2016-07-27] MEDS: DOCUSATE SODIUM 100 MG CAPSULE PO SCH (08:10)
[2016-07-27] MEDS: CARVEDILOL 25 MG TABLET PO SCH ×2 (08:11→17:07)
[2016-07-27 15:24] VITALS: BP 148/98
[2016-07-27 20:17] VITALS: BP 174/111
[2016-07-27] MEDS: ATORVASTATIN 10 MG TABLET PO SCH (20:40)
[2016-07-27 23:00] VITALS: BP 160/88
[2016-07-28] MEDS: PANTOPRAZOLE SODIUM 40 MG TABLET.DR PO SCH ×2 (06:04→08:14)
[2016-07-28] MEDS: hydrALAZINE HCL 50 MG TABLET PO SCH ×2 (06:04→13:11)
[2016-07-28 07:44] VITALS: BP 175/108
[2016-07-28] MEDS: VALSARTAN 160 MG TABLET PO SCH (08:13)
[2016-07-28] MEDS: ASPIRIN 81 MG TAB.CHEW PO SCH (08:13)
[2016-07-28] MEDS: SPIRONOLACTONE 25 MG TABLET PO SCH (08:13)
[2016-07-28] MEDS: OXCARBAZEPINE 300 MG TABLET PO SCH (08:13)
[2016-07-28] MEDS: OLANZAPINE ZYDIS 5 MG TAB.RAPDIS PO SCH (08:13)
[2016-07-28] MEDS: DOCUSATE SODIUM 100 MG CAPSULE PO SCH (08:13)
[2016-07-28] MEDS: CARVEDILOL 25 MG TABLET PO SCH (08:14)
[2016-07-28] MEDS: DOXAZOSIN 2 MG TABLET PO SCH (08:14)
[2016-07-28 13:11] VITALS: BP 197/96
[2016-07-28] MEDS: CLONIDINE HCL 0.3 MG TABLET PO PRN (13:11)
== END 2016-07-28 13:30 | DRG 885 ==
LOC: GPS 16:47
PROVIDERS: ADMIT Psychiatry & Neurology Psychiatry; ATTEND Internal Medicine
DX: F20.0 Paranoid schizophrenia (principal); D68.59 Other primary thrombophilia; I69.351 Hemiplegia and hemiparesis following cerebral infarction affecting right dominant side; Z73.6 Limitation of activities due to disability; E03.9 Hypothyroidism, unspecified; E11.9 Type 2 diabetes mellitus without complications; E78.5 Hyperlipidemia, unspecified; I25.10 Atherosclerotic heart disease of native coronary artery without angina pectoris; K21.9 Gastro-esophageal reflux disease without esophagitis; I10 Essential (primary) hypertension; G40.909 Epilepsy, unspecified, not intractable, without status epilepticus; Z91.81 History of falling; I25.2 Old myocardial infarction; Z91.14 Patient's other noncompliance with medication regimen; F09 Unspecified mental disorder due to known physiological condition
CPT/HCPCS: 97001; A4663

== ENCOUNTER 2016-09-03 21:12 | Inpatient (IN) | payer MEDICARE, OTHER ==
[~2016-09-03] VITALS: Ht 172.7 cm; Wt 95.3 kg
[~2016-09-03 21:12] MED LIST changes: -BISA-79 PO; -CARV12.52 PO; +CARV25TA PO; +CLON1PAT2 TD; +HYDR-3326 PO; -HYDR-4075 PO; -LORA0.5T PO; -OLAN5TAB3 PO; -OXCA300T4 PO; +PANT40TA2 PO; -POTA20TA83 PO; +ZINC113P2 TP
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
[2016-09-03] MEDS ORDERED: BISA10SU12 RC (21:54)
[2016-09-03] MEDS ORDERED: NA P133E RC (21:54)
[2016-09-03] MEDS ORDERED: OLAN5TAB3 PO (21:54)
[2016-09-03] MEDS ORDERED: OXCA300T4 PO (21:54)
[2016-09-03] MEDS ORDERED: POTA-88 PO (21:54)
[2016-09-03] MEDS ORDERED: FURO40TA5 PO (21:54)
[2016-09-03] MEDS ORDERED: HALOPERIDOL LACTATE 5 MG/1 ML VIAL IM ONE (22:15)
[2016-09-03] MEDS ORDERED: diphenhydrAMINE 50 MG/1 ML VIAL IM ONE (22:15)
[2016-09-03] MEDS ORDERED: LORAZEPAM 2 MG/1 ML VIAL IM ONE (22:15)
[2016-09-03] MEDS ORDERED: HALOPERIDOL LACTATE 5 MG/1 ML VIAL ONE (22:20)
[2016-09-03] MEDS ORDERED: diphenhydrAMINE 50 MG/1 ML VIAL ONE (22:20)
[2016-09-03] MEDS ORDERED: LORAZEPAM 2 MG/1 ML VIAL ONE (22:20)
--- NOTE | 2016-09-03 22:20 | NUR ---
Patient refused to transfer from [facility] to [facility]. Became agitated, yelling and screaming at staff and pulling his arms towards him to refuse blood draw or other care activities. DARA REZA called, patient assisted to [facility], medications administered as ordered.
[2016-09-04] VITALS (10 sets, daily range): BP systolic 109–167; BP diastolic 70–117
[2016-09-04 00:01] LABS: BASOPHILS # (AUTO) 0.1 K/uL (0.0-8.0); BASOPHILS % (AUTO) 1.5 % (0.0-2.0); EOSINOPHILS % (AUTO) 0.7 % (0.0-7.0); HEMATOCRIT 45.3 % (36.7-47.1); HEMOGLOBIN 15.4 g/dL (12.5-16.3); LYMPHOCYTES # (AUTO) 0.9 K/uL (20.0-40.0); LYMPHOCYTES % (AUTO) 16.6 % (20.5-51.5); MEAN CORPUSCULAR HEMOGLOBIN 29.1 uug (23.8-33.4); MEAN CORPUSCULAR HGB CONC 34 g/dL (32.5-36.3); MEAN CORPUSCULAR VOLUME 85.8 fL (73.0-96.2); MONOCYTES # (AUTO) 0.3 K/uL (2.0-10.0); MONOCYTES % (AUTO) 5.9 % (0.0-11.0); NEUTROPHILS # (AUTO) 4.3 K/uL (1.8-8.9); NEUTROPHILS % (AUTO) 75.3 % (38.5-71.5); PLATELET COUNT (AUTO) 190 K/uL (152-348); RED BLOOD CELL COUNT(AUTO) 5.28 MIL/uL (4.06-5.63); RED CELL DISTRIBUTION WIDTH 13.3 % (12.1-16.2); WHITE BLOOD COUNT (AUTO) 5.6 K/uL (3.6-10.2)
[2016-09-04 00:06] LABS: ETHANOL < 3 MG/DL (0-0)
[2016-09-04 00:12] LABS: AMMONIA 25 umol/L (11-32)
[2016-09-04 00:13] LABS: CALCIUM 8.7 mg/dL (8.5-10.1); CARBON DIOXIDE 27 mmol/L (21-32); CHLORIDE 104 mmol/L (98-107); CREATININE 1.2 mg/dL (0.6-1.3); GFR 63 mL/min (>60); GLUCOSE 125 mg/dL (74-106); POTASSIUM 2.9 mmol/L (3.5-5.1); SODIUM SERUM 140 mmol/L (136-145); UREA NITROGEN, BLOOD 16 mg/dL (7-18)
[2016-09-04 00:19] LABS: ALANINE AMINOTRANSFERASE 17 U/L (16-63); ALBUMIN 3.1 g/dL (3.4-5.0); ALKALINE PHOSPHATASE 120 U/L (50-136); ASPARTATE AMINOTRANSFERASE 20 U/L (15-37); BILIRUBIN,DIRECT 0.1 mg/dL (0.0-0.2); BILIRUBIN,TOTAL 0.5 mg/dL (0.2-1.0); TOTAL PROTEIN, SERUM 6.9 g/dL (6.4-8.2)
[2016-09-04 00:22] LABS: ACETAMINOPHEN < 2.0 ug/mL (10-30)
--- NOTE | 2016-09-04 00:31 | NUR ---
1:1 sitter not available on TELE, hold patient in ER per Nursing Corporate Treasury Analyst.
--- NOTE | 2016-09-04 00:46 | NUR ---
Panel call placed to [facility], to MD call ongoing.
[2016-09-04] MEDS ORDERED: ENOXAPARIN SODIUM 80 MG/0.8 ML DISP.SYRIN SQ ONE ×2 (01:00→01:14)
[2016-09-04] MEDS ORDERED: FLEET ENEMA 133 ML BOTTLE RC PRN (01:15)
[2016-09-04] MEDS ORDERED: DOCUSATE SODIUM 100 MG CAPSULE PO PRN (01:15)
[2016-09-04] MEDS ORDERED: CLONIDINE TTS 2 PATCH TD SCH (01:15)
[2016-09-04] MEDS ORDERED: ACETAMINOPHEN 325 MG TABLET PO PRN ×2 (01:15→13:00)
[2016-09-04] MEDS ORDERED: POTASSIUM CHLORIDE 50 ML IV SCH (01:15)
[2016-09-04] MEDS ORDERED: NITROGLYCERIN 0.4 MG/TAB BOTTLE SL PRN (01:15)
[2016-09-04] MEDS ORDERED: MORPHINE SULFATE 2 MG/1 ML DISP.SYRIN IV PRN ×2 (01:15)
[2016-09-04] MEDS ORDERED: BISACODYL 10 MG SUPP.RECT RC PRN (01:15)
[2016-09-04] MEDS ORDERED: MAGNESIUM SULFATE/D5W 100 ML IV SCH (01:15)
[2016-09-04] MEDS ORDERED: SIMVASTATIN 10 MG TABLET PO ONE (01:15)
[2016-09-04] MEDS ORDERED: CLONIDINE HCL 0.3 MG TABLET PO PRN (01:15)
--- NOTE | 2016-09-04 02:16 | NUR ---
RODNEY speaking with Dr. Raza (CARDIOLOGY)
[2016-09-04] MEDS ORDERED: DEXTROSE 50% 50 ML DISP.SYRIN IV PRN (02:30)
[2016-09-04] MEDS ORDERED: INSULIN REGULAR, HUMAN 300 UNIT/3 ML VIAL SQ PRN (02:30)
[2016-09-04] MEDS ORDERED: diphenhydrAMINE 50 MG/1 ML VIAL ONE (03:14)
[2016-09-04] MEDS ORDERED: LORAZEPAM 2 MG/1 ML VIAL ONE (03:14)
[2016-09-04] MEDS ORDERED: HALOPERIDOL LACTATE 5 MG/1 ML VIAL ONE (03:14)
[2016-09-04] MEDS ORDERED: diphenhydrAMINE 50 MG/1 ML VIAL IM ONE (03:15)
[2016-09-04] MEDS ORDERED: HALOPERIDOL LACTATE 5 MG/1 ML VIAL IM ONE (03:15)
[2016-09-04] MEDS ORDERED: LORAZEPAM 2 MG/1 ML VIAL IM ONE (03:15)
--- NOTE | 2016-09-04 03:19 | NUR ---
Pt. admitted to CCU, under care of Bambi Allen Belongs List completed
[2016-09-04 03:25] LABS: *BILIRUBIN,URIN 1+ (NEGATIVE); *BLOOD, URINE NEGATIVE (NEGATIVE); *CLARITY,URINE CLEAR (CLEAR); *COLOR,URINE DARK YELLOW (YELLOW); *KETONES,URINE 1+ (NEGATIVE); *PROTEIN,URINE 2+ (NEGATIVE); LEUKOCYTE ESTERASE ,URINE NEGATIVE (NEGATIVE); NITRITE, URINE NEGATIVE (NEGATIVE); UGLUCOSE NEGATIVE (NEGATIVE)
[2016-09-04 03:31] LABS: *AMPHETAMINE, URINE NEGATIVE (NEGATIVE); *BARBITURATE, URINE NEGATIVE (NEGATIVE); *CANNABINOID, URINE NEGATIVE (NEGATIVE); *COCCAINE, URINE NEGATIVE (NEGATIVE); *OPIATE, URINE NEGATIVE (NEGATIVE); *PHENCYCLIDINE SCREEN,URINE NEGATIVE (NEGATIVE)
[2016-09-04 03:38] LABS: BACTERIA,URINE FEW /HPF (NONE SEEN); ICTOTEST NEGATIVE (NEGATIVE); MUCUS,URINE MANY /LPF (0-FEW); SQUAMOUS EPITHELIAL CELL,UR FEW /HPF (NONE SEEN)
--- NOTE | 2016-09-04 03:40 | NUR ---
Admitted to Room CCU 5 from ER Dx: NSTEMI. Pt on 5150 Hold; close CCU RN monitoring observed. Pt calm, following commands, very few soft verbal responses. Unable to obtain info to complete admission interview. Pt with right hemiplegia with right arm stiff/contracted. Routine CCU admission care rendered. Please see admission profile.
--- NOTE | 2016-09-04 04:00 | NUR ---
ER personnel unable to establish IV access and thus Dr. Bambi Madden ordered PICC line (Midline OK) for AM. Pt refused further IV attempts by this RN. Also refused PO meds. Measures observed as not to agitate patient. Informed to call RN for any assistance. Pt is barely verbal.
[2016-09-04] MEDS: PANTOPRAZOLE SODIUM 40 MG TABLET.DR PO SCH (08:38)
[2016-09-04] MEDS: VALSARTAN 160 MG TABLET PO SCH (08:38)
[2016-09-04] MEDS: SPIRONOLACTONE 25 MG TABLET PO SCH (08:38)
[2016-09-04] MEDS: DOCUSATE SODIUM 100 MG CAPSULE PO SCH (08:38)
[2016-09-04] MEDS: ASPIRIN 81 MG TAB.CHEW PO SCH (08:38)
[2016-09-04] MEDS: CARVEDILOL 25 MG TABLET PO SCH ×2 (08:38→18:53)
[2016-09-04] MEDS: OXCARBAZEPINE 300 MG TABLET PO SCH ×2 (08:53→20:49)
[2016-09-04] MEDS: DOXAZOSIN 2 MG TABLET PO SCH ×2 (08:53→20:49)
[2016-09-04] MEDS: BLOOD SUGAR DIAGNOSTIC 1 EACH STRIP VI SCH ×4 (08:53→21:10)
[2016-09-04] MEDS: POTASSIUM CHLORIDE 50 ML IV SCH ×4 (08:53→12:04)
[2016-09-04] MEDS ORDERED: FUROSEMIDE 40 MG TABLET PO SCH (09:00)
[2016-09-04] MEDS ORDERED: Medication Not On Formulary EA (Valsartan (Diovan) 320 MG) PO SCH (09:00)
[2016-09-04] MEDS ORDERED: CARVEDILOL 3.125 MG TABLET PO SCH (09:00)
--- NOTE | 2016-09-04 09:31 | NUR ---
AM ramses held in light of low potassium levels.
--- NOTE | 2016-09-04 10:46 | NUR ---
Spoke with Dr. Raza and stated that it's okay to downgrade pt to telemetry status.
[2016-09-04] MEDS ORDERED: MAGNESIUM HYDROXIDE 30 ML LIQUID UDC PO PRN (13:00)
[2016-09-04] MEDS: ENOXAPARIN SODIUM 100 MG/ML DISP.SYRIN SQ SCH (13:09)
[2016-09-04] MEDS: hydrALAZINE HCL 50 MG TABLET PO SCH ×2 (13:10→21:11)
--- NOTE | 2016-09-04 14:34 | NUR ---
Full telephone SBAR report given to GADIEL Ugalde 2nd floor.
--- NOTE | 2016-09-04 15:00 | NUR ---
Wheeled the pt up to 2nd floor tele rm #[id number] for transfer with 1:1 sitter. All belongings reviewed and taken with the pt. Pt stable and nad noted upon leaving the unit.
--- NOTE | 2016-09-04 15:05 | NUR ---
PATIENT TRANSFERRED FROM CCU. PATIENT ALERT, AWAKE IN NO ACUTE DISTRESS. SR ON STAFFING MGR. CONTINUES ON 1:1 SITTER AT BEDSIDE FOR SAFETY.
[2016-09-04] MEDS ORDERED: CARVEDILOL 25 MG TABLET PO SCH (18:00)
--- NOTE | 2016-09-04 19:16 | NUR ---
END OF SHIFT NOTE: PATIENT IN NO ACUTE DISTRESS THROUGHOUT SHIFT. DENIED PAIN. VSS. NO BEHAVIORS OBSERVED AT THIS TIME. CONTINENT OF B+B. UP TO BATHROOM WITH STAND BY ASSIST. 1:1 SITTER AT BEDSIDE FOR SAFETY.
--- NOTE | 2016-09-04 20:00 | NUR ---
RECEIVED PATIENT AWAKE IN BED WITH 1:1 SITTER AT BEDSIDE. PATIENT IS A/O X 1. APPROPRIATE WHEN APPROACHED. DENIES PAIN OR DISCOMFORT. NO RESP. DISTRESS NOTED. VSS. ON TELE SR. BED ALARM ON. CALL LIGHT IN REACH. ALL NEEDS ATTENDED. WILL CONTINUE TO MONITOR.
[2016-09-04] MEDS: ATORVASTATIN 40 MG TABLET PO SCH (20:49)
[2016-09-04] MEDS: OLANZAPINE 5 MG TABLET PO SCH (20:50)
--- NOTE | 2016-09-04 20:54 | NUR ---
SPOKE WITH PHARMACY FOR CLARIFICATION- PATIENT IS SCHEDULED TO HAVE LOVENOX 90MG AT 0100AM.
[2016-09-04] MEDS ORDERED: ATORVASTATIN 10 MG TABLET PO SCH ×2 (21:00)
[2016-09-05 00:01] VITALS: BP 131/86
[2016-09-05] MEDS: ENOXAPARIN SODIUM 100 MG/ML DISP.SYRIN SQ SCH ×4 (00:33→22:00)
[2016-09-05 04:00] VITALS: BP 128/86
[2016-09-05] MEDS: hydrALAZINE HCL 50 MG TABLET PO SCH ×3 (05:45→21:15)
[2016-09-05] MEDS: PANTOPRAZOLE SODIUM 40 MG TABLET.DR PO SCH (06:22)
[2016-09-05] MEDS: BLOOD SUGAR DIAGNOSTIC 1 EACH STRIP VI SCH ×4 (06:23→20:42)
--- NOTE | 2016-09-05 06:55 | NUR ---
PATIENT CALM AND CO OPERATIVE. NO BEHAVIORAL ISSUES NOTED. CONTINUEING ON HOLD TILL 09/06. 1:1 SITTER AT THE BED SIDE . SAFETY MEASURES OBSERVED.
[2016-09-05 08:00] VITALS: BP 123/84
--- NOTE | 2016-09-05 08:00 | NUR ---
awake alert, oriented to self, follows commands, right sided weakness noted, denies of pain, Tele SR, right upper arm midline intact and patent, sitter at bedside, safety measures maintained
[2016-09-05] MEDS: SPIRONOLACTONE 25 MG TABLET PO SCH ×3 (08:49→12:51)
[2016-09-05] MEDS: CARVEDILOL 25 MG TABLET PO SCH ×2 (08:49→17:30)
[2016-09-05] MEDS: ASPIRIN 81 MG TAB.CHEW PO SCH (08:50)
[2016-09-05] MEDS: DOCUSATE SODIUM 100 MG CAPSULE PO SCH ×2 (08:51→09:00)
[2016-09-05] MEDS: DOXAZOSIN 2 MG TABLET PO SCH ×2 (08:51→20:38)
[2016-09-05] MEDS: VALSARTAN 160 MG TABLET PO SCH (08:52)
[2016-09-05] MEDS: OXCARBAZEPINE 300 MG TABLET PO SCH ×4 (08:52→21:00)
[2016-09-05] MEDS: FUROSEMIDE 20 MG TABLET PO SCH (08:52)
[2016-09-05] MEDS ORDERED: FUROSEMIDE 40 MG TABLET PO SCH (09:00)
[2016-09-05] MEDS ORDERED: ASPIRIN 81 MG TAB.CHEW PO SCH (09:00)
--- NOTE | 2016-09-05 09:00 | NUR ---
refused to take some of his am meds-
[2016-09-05 09:24] LABS: CALCIUM 8.2 mg/dL (8.5-10.1); CREATININE 1.1 mg/dL (0.6-1.3); MAGNESIUM 1.8 mg/dL (1.8-2.4); PHOSPHOROUS 3.4 mg/dL (2.5-4.9); POTASSIUM 3.3 mmol/L (3.5-5.1)
[2016-09-05 09:44] LABS: BASOPHILS # (AUTO) 0.1 K/uL (0.0-8.0); BASOPHILS % (AUTO) 1.1 % (0.0-2.0); EOSINOPHILS # (AUTO) 0.1 K/uL (0.0-0.7); EOSINOPHILS % (AUTO) 2.6 % (0.0-7.0); HEMATOCRIT 43.2 % (36.7-47.1); HEMOGLOBIN 13.8 g/dL (12.5-16.3); LYMPHOCYTES # (AUTO) 1.4 K/uL (20.0-40.0); LYMPHOCYTES % (AUTO) 26.9 % (20.5-51.5); MEAN CORPUSCULAR HGB CONC 32 g/dL (32.5-36.3); MEAN CORPUSCULAR VOLUME 87.4 fL (73.0-96.2); MONOCYTES # (AUTO) 0.4 K/uL (2.0-10.0); MONOCYTES % (AUTO) 7.3 % (0.0-11.0); NEUTROPHILS # (AUTO) 3.3 K/uL (1.8-8.9); NEUTROPHILS % (AUTO) 62.1 % (38.5-71.5); PLATELET COUNT (AUTO) 197 K/uL (152-348); RED BLOOD CELL COUNT(AUTO) 4.94 MIL/uL (4.06-5.63); RED CELL DISTRIBUTION WIDTH 13.6 % (12.1-16.2); WHITE BLOOD COUNT (AUTO) 5.3 K/uL (3.6-10.2)
[2016-09-05 12:00] VITALS: BP 137/90
--- NOTE | 2016-09-05 13:00 | NUR ---
ambulated to BR with help and voiding qs
--- NOTE | 2016-09-05 13:00 | NUR ---
calm and cooperative, resting in bed.
[2016-09-05 16:00] VITALS: BP 146/95
--- NOTE | 2016-09-05 17:50 | NUR ---
no distress noted, all needs attended and met, no distress noted, calm and cooperative at this time, answers only questions asked, doesn't initiate interaction but able to let his needs known, 1:1 sitter at bedside.
[2016-09-05 20:00] VITALS: BP 146/100
--- NOTE | 2016-09-05 20:00 | NUR ---
RECEIVED PATIENT ASLEEP IN BED. EASILY AROUSABLE. DENIES PAIN OR DISCOMFORT. NO RESP. DISTRESS NOTED. MID-LINE NOTED TO RIGHT UPPER ARM. SITTER AT BEDSIDE FOR SAFETY. VSS. CALL LIGHT IN REACH. ALL NEEDS ATTENDED. WILL CONTINUE TO MONITOR.
[2016-09-05] MEDS: OLANZAPINE 5 MG TABLET PO SCH (20:38)
[2016-09-05] MEDS: ATORVASTATIN 40 MG TABLET PO SCH (20:38)
--- NOTE | 2016-09-05 20:45 | NUR ---
PATIENT REFUSED HS ACCU-CHECK. SITTER AT BEDSIDE.
[2016-09-06 05:53] VITALS: BP 149/110
[2016-09-06] MEDS: hydrALAZINE HCL 50 MG TABLET PO SCH ×3 (05:54→21:10)
[2016-09-06] MEDS: PANTOPRAZOLE SODIUM 40 MG TABLET.DR PO SCH (06:01)
[2016-09-06] MEDS: BLOOD SUGAR DIAGNOSTIC 1 EACH STRIP VI SCH ×4 (06:25→21:07)
--- NOTE | 2016-09-06 06:32 | NUR ---
PATIENT AWAKE IN BED. SITTER AT BEDSIDE. SLEPT WELL THROUGHOUT THE NIGHT. VSS. COOPERATIVE THIS AM WITH BLOOD DRAW, ACCU-CHECK AND MEDICATION. BED ALARM ON. CALL LIGHT IN REACH. ALL NEEDS ATTENDED. WILL CONTINUE TO MONITOR.
[2016-09-06 07:01] LABS: BASOPHILS # (AUTO) 0.1 K/uL (0.0-8.0); EOSINOPHILS # (AUTO) 0.2 K/uL (0.0-0.7); HEMATOCRIT 44.5 % (36.7-47.1); HEMOGLOBIN 14.4 g/dL (12.5-16.3); LYMPHOCYTES # (AUTO) 1.4 K/uL (20.0-40.0); LYMPHOCYTES % (AUTO) 27.1 % (20.5-51.5); MEAN CORPUSCULAR HEMOGLOBIN 28.1 uug (23.8-33.4); MEAN CORPUSCULAR HGB CONC 32 g/dL (32.5-36.3); MEAN CORPUSCULAR VOLUME 86.8 fL (73.0-96.2); MONOCYTES # (AUTO) 0.4 K/uL (2.0-10.0); MONOCYTES % (AUTO) 8.4 % (0.0-11.0); NEUTROPHILS % (AUTO) 59.5 % (38.5-71.5); PLATELET COUNT (AUTO) 203 K/uL (152-348); RED BLOOD CELL COUNT(AUTO) 5.12 MIL/uL (4.06-5.63); RED CELL DISTRIBUTION WIDTH 13.6 % (12.1-16.2); WHITE BLOOD COUNT (AUTO) 5.1 K/uL (3.6-10.2)
[2016-09-06 07:14] LABS: CALCIUM 8.4 mg/dL (8.5-10.1); CREATININE 1.1 mg/dL (0.6-1.3); POTASSIUM 3.5 mmol/L (3.5-5.1)
[2016-09-06 07:57] VITALS: BP 147/102
--- NOTE | 2016-09-06 08:00 | NUR ---
awake alert and oriented but very quiet, only answers to questions asked, doesn't initiate interaction, denies of pain, 1:1 sitter in the room, ate good breakfast, needs attended, safety measures maintained Addendum: 09/06/16 at 1034 by KENNY OLIVIER RN reported troponin level 3.[address] Smith at 0800- no order given
[2016-09-06] MEDS: ASPIRIN 81 MG TAB.CHEW PO SCH (08:07)
[2016-09-06] MEDS: CARVEDILOL 25 MG TABLET PO SCH ×2 (08:08→17:12)
[2016-09-06] MEDS: OXCARBAZEPINE 300 MG TABLET PO SCH ×2 (08:08→21:00)
[2016-09-06] MEDS: FUROSEMIDE 20 MG TABLET PO SCH (08:08)
[2016-09-06] MEDS: CLOPIDOGREL 75 MG TABLET PO SCH (08:08)
[2016-09-06] MEDS: DOXAZOSIN 2 MG TABLET PO SCH ×2 (08:09→21:00)
[2016-09-06] MEDS: VALSARTAN 160 MG TABLET PO SCH (08:09)
[2016-09-06] MEDS: SPIRONOLACTONE 25 MG TABLET PO SCH (08:10)
[2016-09-06] MEDS: DOCUSATE SODIUM 100 MG CAPSULE PO SCH (08:22)
[2016-09-06] MEDS: ENOXAPARIN SODIUM 100 MG/ML DISP.SYRIN SQ SCH ×2 (08:22→21:00)
--- NOTE | 2016-09-06 08:22 | NUR ---
pt refused Lovenox- Dr Smith informed
[2016-09-06 11:42] VITALS: BP 136/92
--- NOTE | 2016-09-06 12:00 | NUR ---
ambulates with assistance by sitter to BR for voiding, quiet but follows commands
[2016-09-06 16:00] VITALS: BP_SYST 129; BP_SYST 131; BP_DIAS 79; BP_DIAS 90
--- NOTE | 2016-09-06 18:48 | NUR ---
resting in bed, doesn't interact not unless asked questions, no distress noted, no episode of screaming, all needs attended and met, sitter in the room
[2016-09-06 19:00] VITALS: BP 142/92
--- NOTE | 2016-09-06 19:30 | NUR ---
PT IN BED, ASLEEP BUT AROUSABLE TO TOUCH AND NAME. IN NO ACUTE SIGN OF DISTRESS. ON 1:1 SITTER FOR SAFETY. SAFETY OBSERVED.
[2016-09-06] MEDS: OLANZAPINE 5 MG TABLET PO SCH (21:00)
[2016-09-06] MEDS: ATORVASTATIN 40 MG TABLET PO SCH (21:00)
--- NOTE | 2016-09-06 21:13 | NUR ---
PT REFUSED ALL PM MEDICATIONS, PT IS ALERT AND ORIENTED. OFFERED SEVERAL TIMES, EDUCATED ABOUT THE IMPORTANCE OF TAKING HIS MEDICATIONS, PT STILL REFUSED, STATING " I'LL TAKE THEM TOMORROW". PT ALLOWED TO CHECK HIS BS, RESULT WAS 137, BUT REFUSED TO BE GIVEN WITH INSULIN PER SLIDING SCALE. WILL MONITOR.
--- NOTE | 2016-09-06 22:30 | NUR ---
ASSISTED TO THE BATHROOM, VOIDED X1. NO EPISODES OF AGITATION AT THIS TIME.
[2016-09-07] MEDS: hydrALAZINE HCL 50 MG TABLET PO SCH ×2 (05:07→13:20)
[2016-09-07 05:19] VITALS: BP 157/107
--- NOTE | 2016-09-07 05:36 | NUR ---
PT WAS SLEEPING MOST SHIFT, NO RESPIRATORY DISTRESS. REMAINS CALM AT THIS TIME. CONTINUE ON 1:1 SITTER FOR SAFETY. PT REFUSED BLOOD DRAW IN AM.
[2016-09-07] MEDS: PANTOPRAZOLE SODIUM 40 MG TABLET.DR PO SCH (06:20)
[2016-09-07] MEDS: BLOOD SUGAR DIAGNOSTIC 1 EACH STRIP VI SCH ×2 (06:53→11:31)
[2016-09-07 07:08] VITALS: BP 150/103
[2016-09-07 08:00] VITALS: BP 151/106
[2016-09-07] MEDS: SPIRONOLACTONE 25 MG TABLET PO SCH (08:20)
[2016-09-07] MEDS: DOXAZOSIN 2 MG TABLET PO SCH (08:20)
[2016-09-07] MEDS: FUROSEMIDE 20 MG TABLET PO SCH (08:21)
[2016-09-07] MEDS: VALSARTAN 160 MG TABLET PO SCH (08:21)
[2016-09-07] MEDS: CARVEDILOL 25 MG TABLET PO SCH (08:21)
[2016-09-07] MEDS: CLOPIDOGREL 75 MG TABLET PO SCH (08:21)
[2016-09-07] MEDS: ASPIRIN 81 MG TAB.CHEW PO SCH (08:21)
[2016-09-07] MEDS: OXCARBAZEPINE 300 MG TABLET PO SCH (08:21)
[2016-09-07] MEDS: ENOXAPARIN SODIUM 100 MG/ML DISP.SYRIN SQ SCH (08:24)
[2016-09-07] MEDS: DOCUSATE SODIUM 100 MG CAPSULE PO SCH (08:25)
--- NOTE | 2016-09-07 08:30 | NUR ---
awake in bed, denies of pain, sitter in the room, refused his Lovenox and Colace- explained the importance but still refused, safety measures maintained. Quiet and doesn't initiate interaction
[2016-09-07 08:55] LABS: BASOPHILS # (AUTO) 0.1 K/uL (0.0-8.0); BASOPHILS % (AUTO) 1.9 % (0.0-2.0); EOSINOPHILS # (AUTO) 0.1 K/uL (0.0-0.7); EOSINOPHILS % (AUTO) 2.2 % (0.0-7.0); HEMATOCRIT 47.8 % (36.7-47.1); HEMOGLOBIN 15.5 g/dL (12.5-16.3); LYMPHOCYTES # (AUTO) 0.9 K/uL (20.0-40.0); LYMPHOCYTES % (AUTO) 18.4 % (20.5-51.5); MEAN CORPUSCULAR HEMOGLOBIN 28.1 uug (23.8-33.4); MEAN CORPUSCULAR HGB CONC 32 g/dL (32.5-36.3); MEAN CORPUSCULAR VOLUME 86.7 fL (73.0-96.2); MONOCYTES # (AUTO) 0.4 K/uL (2.0-10.0); MONOCYTES % (AUTO) 7.8 % (0.0-11.0); NEUTROPHILS # (AUTO) 3.5 K/uL (1.8-8.9); NEUTROPHILS % (AUTO) 69.7 % (38.5-71.5); PLATELET COUNT (AUTO) 214 K/uL (152-348); RED BLOOD CELL COUNT(AUTO) 5.51 MIL/uL (4.06-5.63); RED CELL DISTRIBUTION WIDTH 13.2 % (12.1-16.2)
[2016-09-07 09:05] LABS: CALCIUM 8.8 mg/dL (8.5-10.1); CREATININE 1.2 mg/dL (0.6-1.3); POTASSIUM 3.5 mmol/L (3.5-5.1)
[2016-09-07 11:38] VITALS: BP 141/97
--- NOTE | 2016-09-07 12:00 | NUR ---
appetite good, ambulates with assistance to BR for voiding. calm and cooperative
--- NOTE | 2016-09-07 16:00 | NUR ---
report given to Olena RAMESH
--- NOTE | 2016-09-07 16:30 | NUR ---
transferred to MHU per w/c with belongings, midline on the right upper arm removed- no swelling/redness noted on site.
[2016-09-07 16:44] VITALS: BP_SYST 150; BP_SYST 169; BP_DIAS 100; BP_DIAS 116
[2016-09-07] MEDS ORDERED: ATOR80TA PO (17:47)
[2016-09-07] MEDS ORDERED: CLOP75TA2 PO (17:56)
[2016-09-07] MEDS ORDERED: FURO-152 PO (17:57)
== END 2016-09-07 16:50 | DRG 281 ==
LOC: ER 21:13 → CCU 09-04 03:03 → TELE 09-04 15:15 → MED 09-05 15:13
PROVIDERS: ADMIT Internal Medicine; ATTEND Psychiatry & Neurology Psychiatry
PROC: 05H533Z Insertion of Infusion Device into Right Subclavian Vein, Percutaneous Approach (ICD-10-PCS; principal; 2016-09-04)
PROC: B546ZZA Ultrasonography of Right Subclavian Vein, Guidance (ICD-10-PCS; 2016-09-04)
DX: I21.4 Non-ST elevation (NSTEMI) myocardial infarction (principal); I16.1 Hypertensive emergency; I69.351 Hemiplegia and hemiparesis following cerebral infarction affecting right dominant side; I50.32 Chronic diastolic (congestive) heart failure; F20.0 Paranoid schizophrenia; E87.6 Hypokalemia; E11.41 Type 2 diabetes mellitus with diabetic mononeuropathy; E78.5 Hyperlipidemia, unspecified; I25.10 Atherosclerotic heart disease of native coronary artery without angina pectoris; R56.9 Unspecified convulsions; Z73.6 Limitation of activities due to disability; Z91.81 History of falling; N19 Unspecified kidney failure; I11.0 Hypertensive heart disease with heart failure; I25.2 Old myocardial infarction; K21.9 Gastro-esophageal reflux disease without esophagitis; F29 Unspecified psychosis not due to a substance or known physiological condition
CPT/HCPCS: 36415; 70030-TC; 70450; 71010; 80305; 80307; 83605; 83690; 83735; 84100; 84443; 85025; 85610; 85730; 87040; 93005; 93307; A4663; G0480-TC; G6040-TC; J1200; J1630; J1650; J2060; J3480; J7050

== ENCOUNTER 2016-09-07 17:16 | Inpatient (IN) | payer MEDICARE, OTHER ==
[~2016-09-07] VITALS: Ht 182.9 cm; Wt 100.7 kg
[2016-09-07 17:00] VITALS: BP 184/116
--- NOTE | 2016-09-07 17:10 | NUR ---
PT RECEIVED VIA STRETCHER ACCOMPANIED BY MEDR STAFF. DENIES PAIN OR DISCOMFORT. NO AGGRESSIVE OR COMBATIVE BEHAVIOR NOTED. PLEASANT BUT REQUIRES A LOT OF PROMPTING TO RESPOND TO QUESTIONS. IN NO ACUTE DISTRESS.
[~2016-09-07 17:16] MED LIST changes: +BISA10SU12 RC; +FURO40TA5 PO; -HYDR-3326 PO; +NA P133E RC; +OLAN5TAB3 PO; +OXCA300T4 PO; +POTA-88 PO; -ZINC113P2 TP
[2016-09-07] MEDS ORDERED: ATOR80TA PO (17:47)
[2016-09-07] MEDS ORDERED: CLOP75TA2 PO (17:56)
[2016-09-07] MEDS ORDERED: FURO-152 PO (17:57)
[2016-09-07] MEDS ORDERED: MAGNESIUM HYDROXIDE 30 ML LIQUID UDC PO PRN ×2 (18:45→20:15)
[2016-09-07] MEDS ORDERED: MAG HYDROX/AL HYDROX/SIMETH 30 ML LIQUID UDC PO PRN (18:45)
[2016-09-07] MEDS ORDERED: TEMAZEPAM 7.5 MG CAPSULE PO PRN (18:45)
[2016-09-07] MEDS ORDERED: ACETAMINOPHEN 325 MG TABLET PO PRN ×2 (18:45→20:15)
[2016-09-07] MEDS ORDERED: LORAZEPAM 1 MG TABLET PO PRN (18:45)
[2016-09-07] MEDS ORDERED: NITROGLYCERIN 0.4 MG/TAB BOTTLE SL PRN (20:15)
[2016-09-07] MEDS ORDERED: CLONIDINE HCL 0.3 MG TABLET PO PRN (20:15)
[2016-09-07] MEDS ORDERED: BISACODYL 10 MG SUPP.RECT RC PRN (20:15)
[2016-09-07] MEDS: DOXAZOSIN 2 MG TABLET PO SCH (20:35)
[2016-09-07] MEDS: ATORVASTATIN 40 MG TABLET PO SCH (20:38)
[2016-09-07] MEDS: OLANZAPINE 5 MG TABLET PO SCH (20:38)
[2016-09-07] MEDS: OXCARBAZEPINE 300 MG TABLET PO SCH (20:38)
[2016-09-07 20:59] VITALS: BP 162/105
[2016-09-07] MEDS ORDERED: Medication Not On Formulary EA (Atorvastatin Calcium (Lipitor) 80 MG) PO SCH (21:00)
[2016-09-07 21:45] VITALS: BP 139/89
[2016-09-07] MEDS: hydrALAZINE HCL 50 MG TABLET PO SCH (21:45)
[2016-09-08] MEDS: PANTOPRAZOLE SODIUM 40 MG TABLET.DR PO SCH (06:00)
[2016-09-08] MEDS: hydrALAZINE HCL 50 MG TABLET PO SCH ×3 (06:00→22:00)
--- NOTE | 2016-09-08 07:28 | NUR ---
GPS/RN- Upon review of prior patient admission. patient has a LPS Conservator, Umesh Pineda @ [phone], Public Guardian, left message for callback
[2016-09-08 07:30] VITALS: BP 167/114
[2016-09-08] MEDS: CARVEDILOL 25 MG TABLET PO SCH ×2 (08:00→18:44)
[2016-09-08] MEDS: DOCUSATE SODIUM 100 MG CAPSULE PO SCH (09:00)
[2016-09-08] MEDS: CLOPIDOGREL 75 MG TABLET PO SCH (09:00)
[2016-09-08] MEDS: ASPIRIN 81 MG TAB.CHEW PO SCH (09:00)
[2016-09-08] MEDS ORDERED: Medication Not On Formulary EA (Valsartan (Diovan) 320 MG) PO SCH (09:00)
[2016-09-08] MEDS: FUROSEMIDE 20 MG TABLET PO SCH (09:10)
[2016-09-08] MEDS: SPIRONOLACTONE 25 MG TABLET PO SCH (09:10)
[2016-09-08] MEDS: DOXAZOSIN 2 MG TABLET PO SCH ×2 (09:11→20:06)
[2016-09-08] MEDS: VALSARTAN 160 MG TABLET PO SCH (09:11)
[2016-09-08] MEDS: OXCARBAZEPINE 300 MG TABLET PO SCH ×2 (09:12→20:05)
[2016-09-08] MEDS: OLANZAPINE 5 MG TABLET PO SCH ×2 (09:24→20:05)
--- NOTE | 2016-09-08 15:22 | NUR ---
GPS/RN- left message on answering machine with public guardian office, jewel supervisor Jeanette Garcia @ [phone].
[2016-09-08 15:27] VITALS: BP 148/102
--- NOTE | 2016-09-08 15:52 | NUR ---
GPS/RN- LPS CONSERTORSHIP Received call from Jeanette Garcia Dipping Machine Operator of the [facility] Department of Mental Health, patient continues to be conserved by office of the Public Guardian, Sudhakar and Katerine requested. Sudhakar and Katerine Received for [facility]. Case # [id number], Dates Conserved 09/25/15 thru 09/23/16. [facility] #6A thru 8A listed.
--- NOTE | 2016-09-08 16:09 | NUR ---
GPS/RN- patient conservatorship expiring 09/23/16. New Hearing scheduled for 09/15/16. spoke with Public Guardian Umesh Jay, he advised that patient was asked if he wanted to attended his hearing, he does not wish to.
[2016-09-08] MEDS ORDERED: OLANZAPINE 10 MG VIAL IM PRN (18:45)
[2016-09-08] MEDS: ATORVASTATIN 40 MG TABLET PO SCH (20:05)
[2016-09-08 20:57] VITALS: BP 135/81
[2016-09-09] MEDS: PANTOPRAZOLE SODIUM 40 MG TABLET.DR PO SCH (06:32)
[2016-09-09] MEDS: hydrALAZINE HCL 50 MG TABLET PO SCH ×3 (06:33→21:52)
--- NOTE | 2016-09-09 06:45 | NUR ---
GPS: Pt.again refused to have blood drawing this am despite explanation of importance. Easily irritable when being persuaded. Charge nurse informed.
[2016-09-09 07:30] VITALS: BP 138/85
[2016-09-09] MEDS: OXCARBAZEPINE 300 MG TABLET PO SCH ×2 (08:34→20:51)
[2016-09-09] MEDS: CLOPIDOGREL 75 MG TABLET PO SCH (08:34)
[2016-09-09] MEDS: CARVEDILOL 25 MG TABLET PO SCH ×2 (08:34→18:07)
[2016-09-09] MEDS: SPIRONOLACTONE 25 MG TABLET PO SCH (08:35)
[2016-09-09] MEDS: VALSARTAN 160 MG TABLET PO SCH (08:35)
[2016-09-09] MEDS: DOXAZOSIN 2 MG TABLET PO SCH ×2 (08:35→20:52)
[2016-09-09] MEDS: OLANZAPINE 5 MG TABLET PO SCH ×2 (08:35→20:52)
[2016-09-09] MEDS: FUROSEMIDE 20 MG TABLET PO SCH (08:35)
[2016-09-09] MEDS: ASPIRIN 81 MG TAB.CHEW PO SCH (08:36)
[2016-09-09] MEDS: DOCUSATE SODIUM 100 MG CAPSULE PO SCH (08:43)
--- NOTE | 2016-09-09 08:48 | NUR ---
PATIENT NOTED TO HAVE PAIN OF 5 OUT OF 10. PATIENT PAIN LOCALIZED TO RIGHT ARM, REFUSED PRN FOR PAIN AT THIS TIME CONTINUE TO MONITOR. 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 PATIENT HAS POOR INSIGHT AND PARANOID, CONTINUE TO MONITOR. Addendum: 09/09/16 at 0849 by AMRIT MARROQUIN RN Amended: Links added.
--- NOTE | 2016-09-09 11:34 | NUR ---
Initial discharge instructions: Patient resides at [facility] located at [address] [place] [address]. SW asked patient where he lives and patient stated, "I don't know." SW spoke with Leona at the facility who stated that they would like for the patient to be referred elsewhere upon discharge. SS will speak with the pt's conservator, Morgan [phone],and regarding the most appropriate discharge plan and find alternative placement if need be. SS will help form a safe and proper discharge.
--- NOTE | 2016-09-09 13:02 | NUR ---
Bottom Steep Tender KEVIN called the patient's LPS conservator to discuss DC planning today at 11:15 am and left a message, however did not receive a call back. KEVIN called Umesh Pineda again at 1:00 pm and left another voicemail regarding DC planning. Still awaiting call back. KEVIN then called the Office of Public Guardian, Main line at 1:05 pm to speak with the duty worker of the day for unit 17 which turned out to be Umesh Pineda. KEVIN left a third message for him there regarding DC planning for the patient. Awaiting call back.
[2016-09-09 14:30] VITALS: BP 101/59
[2016-09-09 16:00] VITALS: BP 160/95
[2016-09-09 20:24] VITALS: BP 136/94
[2016-09-09] MEDS: ATORVASTATIN 40 MG TABLET PO SCH (20:51)
--- NOTE | 2016-09-09 22:00 | NUR ---
received to care, lying in bed, pleasant upon approach. remains isolative. compliant with medications and staff direction. as of 2199, he remains asleep. no distress noted. will continue to monitor closely.
[2016-09-10] MEDS: hydrALAZINE HCL 50 MG TABLET PO SCH ×4 (05:50→21:57)
[2016-09-10] MEDS: PANTOPRAZOLE SODIUM 40 MG TABLET.DR PO SCH (06:01)
--- NOTE | 2016-09-10 06:13 | NUR ---
slept 7.5 hours. remains asleep, but easy to awaken. no distress noted. will continue to monitor closely.
[2016-09-10] MEDS: CARVEDILOL 25 MG TABLET PO SCH ×2 (08:00→18:00)
[2016-09-10 08:07] LABS: THYROID STIMULATING HORMONE 2.541 mIU/mL (0.358-3.740)
[2016-09-10 08:30] LABS: ALBUMIN 2.9 g/dL (3.4-5.0); BILIRUBIN,TOTAL 0.2 mg/dL (0.2-1.0); CALCIUM 8.5 mg/dL (8.5-10.1); CREATININE 1.3 mg/dL (0.6-1.3); MAGNESIUM 1.8 mg/dL (1.8-2.4); PHOSPHOROUS 3.6 mg/dL (2.5-4.9); POTASSIUM 3.6 mmol/L (3.5-5.1); TOTAL PROTEIN, SERUM 6.5 g/dL (6.4-8.2)
[2016-09-10] MEDS: VALSARTAN 160 MG TABLET PO SCH (09:00)
[2016-09-10] MEDS: DOCUSATE SODIUM 100 MG CAPSULE PO SCH ×2 (09:00→09:45)
[2016-09-10] MEDS: SPIRONOLACTONE 25 MG TABLET PO SCH (09:00)
[2016-09-10] MEDS: DOXAZOSIN 2 MG TABLET PO SCH ×2 (09:00→20:53)
[2016-09-10] MEDS: OXCARBAZEPINE 300 MG TABLET PO SCH ×2 (09:45→20:53)
[2016-09-10] MEDS: OLANZAPINE 5 MG TABLET PO SCH ×2 (09:45→20:53)
[2016-09-10] MEDS: ASPIRIN 81 MG TAB.CHEW PO SCH (09:45)
[2016-09-10] MEDS: CLOPIDOGREL 75 MG TABLET PO SCH (09:45)
[2016-09-10] MEDS: FUROSEMIDE 20 MG TABLET PO SCH (09:46)
--- NOTE | 2016-09-10 10:06 | NUR ---
pt has refused to have b/p taken and b/p meds with held for safety
[2016-09-10 15:16] VITALS: BP 147/96
[2016-09-10 20:00] VITALS: BP 173/109
[2016-09-10] MEDS: ATORVASTATIN 40 MG TABLET PO SCH (20:54)
--- NOTE | 2016-09-10 22:00 | NUR ---
received to care, lying in bed, pleasant upon approach. remains isolative. compliant with medications and staff direction. fluids, and bedtime snack, given. as of 2200, he remains asleep. no distress noted. will continue to monitor closely.
[2016-09-11] MEDS: hydrALAZINE HCL 50 MG TABLET PO SCH ×3 (06:04→23:13)
--- NOTE | 2016-09-11 06:09 | NUR ---
slept 7.5 hours. remains asleep, is now awake. compliant with AM b/p check, and 0600 dose of hydralazine. no distress noted. will continue to monitor closely.
[2016-09-11] MEDS: PANTOPRAZOLE SODIUM 40 MG TABLET.DR PO SCH (07:00)
[2016-09-11 07:30] VITALS: BP 134/69
[2016-09-11] MEDS: CARVEDILOL 25 MG TABLET PO SCH ×2 (08:00→18:39)
[2016-09-11] MEDS: CYANOCOBALAMIN 1000 MCG/ML VIAL IM SCH ×2 (09:00→09:05)
[2016-09-11] MEDS: FUROSEMIDE 20 MG TABLET PO SCH (09:04)
[2016-09-11] MEDS: CLOPIDOGREL 75 MG TABLET PO SCH (09:04)
[2016-09-11] MEDS: DOXAZOSIN 2 MG TABLET PO SCH ×2 (09:04→20:13)
[2016-09-11] MEDS: OLANZAPINE 5 MG TABLET PO SCH ×2 (09:04→20:13)
[2016-09-11] MEDS: ASPIRIN 81 MG TAB.CHEW PO SCH (09:04)
[2016-09-11] MEDS: SPIRONOLACTONE 25 MG TABLET PO SCH (09:04)
[2016-09-11] MEDS: DOCUSATE SODIUM 100 MG CAPSULE PO SCH (09:04)
[2016-09-11] MEDS: VALSARTAN 160 MG TABLET PO SCH (09:05)
[2016-09-11] MEDS: OXCARBAZEPINE 300 MG TABLET PO SCH ×2 (09:05→20:13)
[2016-09-11 15:15] VITALS: BP 137/88
[2016-09-11] MEDS: ATORVASTATIN 40 MG TABLET PO SCH (20:13)
[2016-09-11 20:25] VITALS: BP 174/112
[2016-09-12] MEDS: hydrALAZINE HCL 50 MG TABLET PO SCH ×3 (06:14→22:00)
[2016-09-12] MEDS: PANTOPRAZOLE SODIUM 40 MG TABLET.DR PO SCH (06:16)
[2016-09-12 07:54] VITALS: BP 143/89
[2016-09-12] MEDS: CARVEDILOL 25 MG TABLET PO SCH ×2 (08:48→17:17)
[2016-09-12] MEDS: DOXAZOSIN 2 MG TABLET PO SCH ×2 (08:48→20:18)
[2016-09-12] MEDS: SPIRONOLACTONE 25 MG TABLET PO SCH (08:48)
[2016-09-12] MEDS: CLOPIDOGREL 75 MG TABLET PO SCH (08:48)
[2016-09-12] MEDS: VALSARTAN 160 MG TABLET PO SCH (08:49)
[2016-09-12] MEDS: ASPIRIN 81 MG TAB.CHEW PO SCH (08:49)
[2016-09-12] MEDS: FUROSEMIDE 20 MG TABLET PO SCH (08:49)
[2016-09-12] MEDS: OLANZAPINE 5 MG TABLET PO SCH ×2 (08:49→20:19)
[2016-09-12] MEDS: OXCARBAZEPINE 300 MG TABLET PO SCH ×2 (08:49→20:19)
[2016-09-12] MEDS: CYANOCOBALAMIN 1000 MCG/ML VIAL IM SCH (09:00)
[2016-09-12] MEDS: DOCUSATE SODIUM 100 MG CAPSULE PO SCH (09:00)
[2016-09-12 15:41] VITALS: BP 137/88
[2016-09-12] MEDS: ATORVASTATIN 40 MG TABLET PO SCH (20:19)
[2016-09-12 20:52] VITALS: BP 171/107
[2016-09-13] MEDS: PANTOPRAZOLE SODIUM 40 MG TABLET.DR PO SCH (06:37)
[2016-09-13] MEDS: hydrALAZINE HCL 50 MG TABLET PO SCH ×3 (06:37→21:34)
[2016-09-13 07:30] VITALS: BP 154/105
[2016-09-13] MEDS: FUROSEMIDE 20 MG TABLET PO SCH (08:20)
[2016-09-13] MEDS: OXCARBAZEPINE 300 MG TABLET PO SCH ×2 (08:20→20:27)
[2016-09-13] MEDS: CLOPIDOGREL 75 MG TABLET PO SCH (08:20)
[2016-09-13] MEDS: ASPIRIN 81 MG TAB.CHEW PO SCH (08:20)
[2016-09-13] MEDS: OLANZAPINE 5 MG TABLET PO SCH ×2 (08:20→20:26)
[2016-09-13] MEDS: DOXAZOSIN 2 MG TABLET PO SCH ×2 (08:20→20:27)
[2016-09-13] MEDS: VALSARTAN 160 MG TABLET PO SCH (08:20)
[2016-09-13] MEDS: DOCUSATE SODIUM 100 MG CAPSULE PO SCH (08:21)
[2016-09-13] MEDS: CYANOCOBALAMIN 1000 MCG/ML VIAL IM SCH (08:21)
[2016-09-13] MEDS: CARVEDILOL 25 MG TABLET PO SCH ×2 (08:24→17:19)
[2016-09-13] MEDS: SPIRONOLACTONE 25 MG TABLET PO SCH (08:24)
[2016-09-13 15:42] VITALS: BP 150/89
[2016-09-13 20:00] VITALS: BP 167/108
[2016-09-13] MEDS: ATORVASTATIN 40 MG TABLET PO SCH (20:26)
[2016-09-14] MEDS: hydrALAZINE HCL 50 MG TABLET PO SCH ×3 (06:25→22:05)
[2016-09-14] MEDS: PANTOPRAZOLE SODIUM 40 MG TABLET.DR PO SCH (06:27)
[2016-09-14 07:30] VITALS: BP 172/107
[2016-09-14] MEDS: CLOPIDOGREL 75 MG TABLET PO SCH (08:17)
[2016-09-14] MEDS: FUROSEMIDE 20 MG TABLET PO SCH (08:17)
[2016-09-14] MEDS: DOCUSATE SODIUM 100 MG CAPSULE PO SCH (08:17)
[2016-09-14] MEDS: OXCARBAZEPINE 300 MG TABLET PO SCH ×2 (08:17→19:53)
[2016-09-14] MEDS: SPIRONOLACTONE 25 MG TABLET PO SCH (08:17)
[2016-09-14] MEDS: DOXAZOSIN 2 MG TABLET PO SCH ×2 (08:17→19:52)
[2016-09-14] MEDS: ASPIRIN 81 MG TAB.CHEW PO SCH (08:17)
[2016-09-14] MEDS: VALSARTAN 160 MG TABLET PO SCH (08:17)
[2016-09-14] MEDS: OLANZAPINE 5 MG TABLET PO SCH ×2 (08:18→19:53)
[2016-09-14] MEDS: CYANOCOBALAMIN 1000 MCG/ML VIAL IM SCH (08:18)
[2016-09-14] MEDS: CARVEDILOL 25 MG TABLET PO SCH ×2 (08:24→17:09)
[2016-09-14 15:32] VITALS: BP 151/98
[2016-09-14] MEDS: ATORVASTATIN 40 MG TABLET PO SCH (19:53)
[2016-09-14 20:00] VITALS: BP 168/85
[2016-09-15] MEDS: hydrALAZINE HCL 50 MG TABLET PO SCH ×2 (06:16→13:21)
[2016-09-15] MEDS: PANTOPRAZOLE SODIUM 40 MG TABLET.DR PO SCH (06:17)
[2016-09-15 07:30] VITALS: BP 156/96
[2016-09-15] MEDS: ASPIRIN 81 MG TAB.CHEW PO SCH (08:27)
[2016-09-15] MEDS: SPIRONOLACTONE 25 MG TABLET PO SCH (08:27)
[2016-09-15] MEDS: CLOPIDOGREL 75 MG TABLET PO SCH (08:27)
[2016-09-15] MEDS: CARVEDILOL 25 MG TABLET PO SCH ×2 (08:27→17:04)
[2016-09-15] MEDS: OXCARBAZEPINE 300 MG TABLET PO SCH (08:28)
[2016-09-15] MEDS: OLANZAPINE 5 MG TABLET PO SCH (08:28)
[2016-09-15] MEDS: VALSARTAN 160 MG TABLET PO SCH (08:28)
[2016-09-15] MEDS: FUROSEMIDE 20 MG TABLET PO SCH (08:28)
[2016-09-15] MEDS: DOCUSATE SODIUM 100 MG CAPSULE PO SCH (08:29)
[2016-09-15] MEDS: DOXAZOSIN 2 MG TABLET PO SCH (08:29)
[2016-09-15] MEDS: CYANOCOBALAMIN 1000 MCG/ML VIAL IM SCH (08:29)
--- NOTE | 2016-09-15 14:13 | NUR ---
[employer]uous [employer] The patient has been accepted to [facility] [[address] [place] [address] ]. Spoke with Abby in admissions who stated that they will be able to accept the patient today. KEVIN has made multiple attempts today as well as during the patient's entire stay to contact patient's LPS conservator Umesh Edwin to see if he is agreeable discharging the patient to an alternate facility and he has still not return the KEVIN's calls. KEVIN also called the Office of Public Guardian, [facility] and spoke with Geovanna who suggested that the SW e-mail Umesh Pineda at [email or web address] stating that he may be more inclined to respond there. KEVIN e-mailed Umesh today at 12:50 pm and still has not received an e-mail back. KEVIN has also called Alexys, Vocational School Teacher on Duty at the [employer] and left two voicemails regarding this matter however has still not received a call back. Addendum: 09/15/16 at 1428 by KESHA BROWN KEVIN was able to get a hold of Vocational School Teacher on Duty, Alexys after several attempts at 2:25 pm and asked if the patient may be discharged to [facility]. Alexys stated that he will call KEVIN back in a few minutes. Awaiting call from Alexys. Addendum: 09/15/16 at 1505 by KESHA BROWN KEVIN received a call from Umesh Pineda and he stated that a licensed sales assistant must sign a "Request for approval of placement/transfer of conservatee" form prior to patient begin transferred to a different [facility]. KEVIN spoke with Abby in admissions at [facility] just now and she stated that they are no longer able to accept the patient. KEVIN has contacted Ivan in admissions at [facility] inquiring about patient being admitted to their facility. Ivan stated that she will call KEVIN back shortly with a response. KEVIN awaiting call back from Ivan. Addendum: 09/15/16 at 1554 by KESHA BROWN KEVIN received a call from Ivan at 3:23 pm stating that they will be able to accept the patient today. Per Ivan, the facility will be providing the patient with a 1:1 sitter in their open unit and will assess the patient to determine if he will be required to be in their locked unit. KEVIN spoke with Dr. Cosme and he is aware and agreeable with this plan.
[2016-09-15 15:11] VITALS: BP 111/63
--- NOTE | 2016-09-15 16:28 | NUR ---
DC Note: The patient will be discharged today to [facility] ([facility]) [[address] [place] [address]; ] via ambulance. KEVIN spoke with Ivan in admissions who stated that they will be able to accept the patient today. The patient will be assigned to room 216a. Ivan stated that they will provide the patient with a 1:1 sitter at the facility for safety. KEVIN spoke with the [facility] LPS conservator with the [employer] of Public [employer], Umesh Pineda and he is aware and agreeable with the discharge plan. Umesh has provided the hospital with a stamped approval for the patient to be transferred to [facility] today. The patient will follow-up at the facility with processing specialist Dr. Chauhan and psychiatrist Dr. Conrad.
[2016-09-15 17:04] VITALS: BP 124/65
--- NOTE | 2016-09-15 17:31 | NUR ---
PATIENT WILL BE DISCHARGE TO [facility] VIA AMBULANCE,ALL PATIENT'S BELONGINGS RETURN TO PATIENT .VITAL SIGN STABLE.
== END 2016-09-15 18:40 | DRG 885 ==
LOC: GPS 17:16
PROVIDERS: ADMIT Psychiatry & Neurology Psychiatry; ATTEND Internal Medicine
DX: F20.0 Paranoid schizophrenia (principal); I11.0 Hypertensive heart disease with heart failure; I21.4 Non-ST elevation (NSTEMI) myocardial infarction; D68.59 Other primary thrombophilia; I50.32 Chronic diastolic (congestive) heart failure; I69.351 Hemiplegia and hemiparesis following cerebral infarction affecting right dominant side; F29 Unspecified psychosis not due to a substance or known physiological condition; E11.9 Type 2 diabetes mellitus without complications; E78.5 Hyperlipidemia, unspecified; F32.9 Major depressive disorder, single episode, unspecified; I25.10 Atherosclerotic heart disease of native coronary artery without angina pectoris; K21.9 Gastro-esophageal reflux disease without esophagitis; Z91.81 History of falling; I25.2 Old myocardial infarction; G40.909 Epilepsy, unspecified, not intractable, without status epilepticus
CPT/HCPCS: 36415; 70030-TC; 82306; 83735; 84100; 84443; 97001; 97116; 97530; J3420